=== PATIENT | female | born 1940 | race Caucasian/White ===

== ENCOUNTER 2017-04-07 16:59 | Inpatient (IN) | payer MEDICARE, MEDICAID ==
[~2017-04-07] VITALS: Ht 174 cm; Wt 75.3 kg
[~2017-04-07 16:59] MED LIST: ACET-1890 PO; AMAN100T PO; ASPI-628 PO; CHOL200047 PO; DEXT1DRO7 BOTH_EYES; DOCU100T2 PO; Dexamethasone PO; FENT1PAT7 TOP; GABA600T PO; HYPR15DR3 BOTH_EYES; INVANZ1I IV; LACT1CAP13 PO; LIDO5CRE5 TP; MENT1ADH TP; MIRT15TA PO; NITR100 PO; OXYC5TAB72 PO; POLY17PO6 PO; RANI150T13 PO; SENN-133 PO; SERT25TA2 PO; TIZA4TAB4 PO; TIZA6CAP9 PO
[2017-04-07 17:10] VITALS: BP 114/71; PULSE 84; RESP 16; O2SAT 93
--- NOTE | 2017-04-07 17:11 | ED.REPORT ---
HPI-Extremity Problem Lower Date of Service Apr 07, 2017 ED Provider: History of Present Illness: 76yo female with new onset R hip pain. 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 Pt. is a resident at [facility]. R hip pain is sharp, non-radiating. She has moderate contractures. Hx. of hemorrhagic CVA, not on any blood thinners. Nursing Notes Stated Complaint: HIP FRACTURE Chief Complaint: Extremity Trauma Nursing Notes Reviewed: Yes Allergies: Coded Allergies: Cephalexin Monohydrate (Verified Allergy, Unknown, 05/18/15) Scheduled ([Dexamethasone]) 2 MG TABLET 2 MG PO DAILYWM Amantadine (Amantadine) 100 Mg Tablet 100 MG PO DAILY Aspirin (Aspir 81) 81 Mg Tablet.dr 81 MG PO DAILY Cholecalciferol (Vitamin D3) (Vitamin D3) 2,000 Unit Capsule 2,000 UNIT PO DAILY Dextran 70/Hypromellose (Artificial Tears) 1 Each Droperette 1 DRP BOTH_EYES BID Docusate Sodium (Docusate Sodium) 100 Mg Tablet 200 MG PO BID Ertapenem Sodium (Invanz) 1,000 Mg/10 Ml Vial 1,000 MG IV DAILY Fentanyl 25 mcg/hr Patch (Fentanyl 25 mcg/hr Patch) 1 Each Patch.td72 1 PATCH TOP Q3D Gabapentin (Neurontin) 600 Mg Tablet 600 MG PO TID Lactobacillus Acidophilus (Acidophilus) 1 Each Capsule 2 TAB PO BID take until 05/27/15 Lidocaine (Lidocream) 5 Gm Cream..g. 1 APPL TP DAILY lidocaine gel 5%- apply to Right hip/right shoulder topically one time a day for chronic pain of contracture- rub on to hip and shoulder joints Menthol (Icy Hot) 1 Each Adh..patch 1 PAD TP BID Icy Hot (Menthol (Topical Agent) 5% external) apply to right shoulder twice a day Mirtazapine (Remeron) 15 Mg Tablet 15 MG PO HS Nitrofurantoin Monohyd/M-Cryst (MacroBid) 100 Mg Capsule 100 MG PO BID for UTI- take until 05/21/15 Polyethylene Glycol 3350 (Miralax) 17 Gm Powd.pack 17 GM PO DAILY Ranitidine HCl (Zantac) 150 Mg Tablet 150 MG PO DAILY Sertraline HCl (Zoloft) 25 Mg Tablet 75 MG PO DAILY Tizanidine (Tizanidine) 4 Mg Tablet 4 MG PO BID muscle spasm Tizanidine (Tizanidine) 6 Mg Capsule 6 MG PO evening muscle spasm oxyCODONE (oxyCODONE) 5 Mg Tablet 10 MG PO DAILY Scheduled PRN Acetaminophen (Tylenol) 325 Mg Tablet 650 MG PO Q4 PRN PRN For Pain Hypromellose (Natural Balance Tears) 15 Ml Drops 1 DRP BOTH_EYES Q4 PRN PRN dry eyes Sennosides (Senna) 8.6 Mg Tablet 3 TAB PO BID PRN PRN For Constipation oxyCODONE (oxyCODONE) 5 Mg Tablet 5 MG PO TID PRN PRN For Pain General Time Seen by MD: 17:10 Chief Complaint Hip injury right Hx Obtained From: Daughter Arrived By: Ambulance Onset Occurred: 1 - 4 hours ago Symptom Duration: Since onset Context: Occurred at: Home injury Location: : Hip right Quality: Sharp Severity: Current: Moderate Severity: Maximum: Moderate Pertinent Negative: Pt denies other symptoms Exacerbated by: Movement Relieved by: Rest Similar Sx Previous: No Risk-Extremity Prob Lower Well's Criteria for DVT Well's DVT Score: 0 pts (low risk 5%) Past Medical History Past Medical History Chronic pain Neurogenic bladder Reports: GERD, Hypertension, Stroke Reports: Depression Smoking History Former Smoker Social History Alcohol Use: Denies alcohol use Drug Use: Denies drug use Other Social History: Lives in [facility] Review of Systems Constitutional: Denies: Chills, Fever Musculoskeletal: Reports: Joint pain Respiratory: Denies: Shortness of breath Cardiovascular: Denies: Chest pain GI: Denies: Abdominal pain Physical Exam Initial Vital Signs Vital Signs (First) Date Time Temp Pulse Resp B/P Pulse Ox O2 Delivery O2 Flow Rate FiO2 04/07/17 17:10 37.4 84 16 114/71 93 Room Air Initial VS: Reviewed Right Hip: Positive: Deformity present, Tenderness present..., Negative: Ecchymosis present, Neuro deficit present, Pulses distal decreased , Swelling present... Right Leg / Calf: Negative: Neuro deficit present, Pulses distal decreased General/Constitutional: Awake, Alert, Not toxic appearing Appearance / Presentation: Positive: Frail L sided contractures noted Respiratory / Chest: Breath sounds NL, Breath sounds = bilat, No respiratory distress Cardiovascular: Heart rate NL, Regular rhythm, Heart sounds NL Abdomen: Soft, Non-tender Interpretation & Diagnostics Lab Results Interpretation Result Diagram: 04/07/17201104/07/172011 Test 04/07/17 20:12 White Blood Count 9.6th/mm3 (3.8-10.1) Red Blood Count 4.62mil/mm3 (3.90-5.20) Hemoglobin 10.8g/dL (12.0-15.6) Hematocrit 36.4% (35.0-46.0) Mean Corpuscular Volume 78.8fL (81-100) Mean Corpuscular Hemoglobin 23.4pg (27.0-35.0) Mean Corpuscular Hemoglobin Concent 29.7% (32.0-37.0) Red Cell Distribution Width 16.3% (12.3-15.4) Platelet Count 292bil/L (150-400) Neutrophils (%) (Auto) 89.6% (40-74) Lymphocytes (%) (Auto) 6.7% (14-46) Monocytes (%) (Auto) 2.9% (4-12) Eosinophils (%) (Auto) 0.3% (0-5) Basophils (%) (Auto) 0.2% (0-3) Prothrombin Time 9.5sec (8.1-12.5) Prothromb Time International Ratio 0.89ratio Sodium Level 140mEq/L (134-144) Potassium Level 4.3mEq/L (3.5-5.2) Chloride Level 103mEq/L (97-108) Carbon Dioxide Level 24mmol/L (18-29) Blood Urea Nitrogen 22mg/dL (8-27) Creatinine 0.64mg/dL (0.57-1.00) Estimat Glomerular Filtration Rate 130mL/min (>59) Glucose Level 153mg/dL (60-99) Calcium Level 9.0mg/dL (8.5-10.1) Total Bilirubin 0.2mg/dL (0.0-1.2) Aspartate Amino Transf (AST/SGOT) 16U/L (0-50) Alanine Aminotransferase (ALT/SGPT) 10U/L (0-32) Alkaline Phosphatase 97U/L (25-165) Total Protein 6.5g/dL (6.4-8.4) Albumin 3.2g/dL (3.4-5.0) X-Ray Interpretation Xray Interpretation: PROCEDURE: X-RAY RIGHT HIP COMPLETE, MINIMUM TWO VIEWS ([id number]) INDICATIONS: pain TECHNIQUE: 2 views of the hip were acquired. COMPARISON: None. FINDINGS: Bones: There is diffuse osteopenia. There is an impacted subcapital fracture of the right femoral neck. The visualized pelvic ring appears intact. Soft tissues: No suspicious soft tissue calcifications or masses. IMPRESSION: 1. Impacted subcapital right femoral neck fracture. Dictated by: Mason Portillo M.D. on 04/07/2017 at 18:06 Approved by: Mason Portillo M.D. on 04/07/2017 at 18:07 Re-Eval/Medical Decision Med Decision/Clinical Course Spoke with Dr. Wang, advertising sales consultant ortho and he suggested repair given injury is to non-affected side from stroke. Pt. is bed bound, but likely does some transferring and hip fracture may impede that. Spoke with Dr. Mendoza who accepted Pt. to his service. Differential Diagnosis: Positive: Fracture Diagnosis Appears: Evident Counseled Regarding: Diagnosis, Lab results, Need for follow-up, Need for admission Discharge & Departure Impression: Primary Impression: Closed right hip fracture Encounter type: initial encounter Qualified Code: S72.001A - Fracture of unspecified part of neck of right femur, initial encounter for closed fracture Additional Impression: Contracture of joint of multiple sites Disposition: ADMITTED TO HOSPITAL Referrals: Madison Schmitt MD (PCP) EDSupervising Provider for APC: Qasim Galdamez DO copies to: Madison Schmitt MD, Christopher R PAC Apr 07, 2017 17:11
--- NOTE | 2017-04-07 18:09 | DRSVH ---
PROCEDURE: X-RAY RIGHT HIP COMPLETE, MINIMUM TWO VIEWS ([id number]) INDICATIONS: pain TECHNIQUE: 2 views of the hip were acquired. COMPARISON: None. FINDINGS: Bones: There is diffuse osteopenia. There is an impacted subcapital fracture of the right femoral ne ck. The visualized pelvic ring appears intact. Soft tissues: No suspicious soft tissue calcifications or masses. IMPRESSION: 1. Impacted subcapital right femoral neck fracture. Dictated by: Mason Portillo M.D. on 04/07/2017 at 18:06 Approved by: Mason Portillo M.D. on 04/07/2017 at 18:07
[2017-04-07] MEDS ORDERED: Ondansetron 2 mg/mL 2 mL Inj IVPUSH PRN (19:40)
[2017-04-07] MEDS ORDERED: Alum-Mag Hydrox-Simeth 30 mL Suspension PO PRN (19:40)
[2017-04-07] MEDS ORDERED: Polyethylene Glycol (PEG) 17 Gm Powder PO PRN (19:40)
--- NOTE | 2017-04-07 19:47 | DRSVH ---
PROCEDURE: X-RAY CHEST ONE VIEW, PORTABLE ([id number]) INDICATIONS: pre-op TECHNIQUE: One view of the chest was acquired. COMPARISON: [facility], ASHLEY, XR HIP 2VW RT, 04/07/2017, 17:49. [facility], CR , CHEST 1VW (PORTABLE), 05/18/2015, 19:57. FINDINGS: Surgical changes and devices: None. Lungs and pleura: No pleural effusions or pneumothorax. There is mild linear scarring or atelectasi s in the left base. No acute consolidation. Mediastinum: Mediastinal contours appear normal. Heart size is normal. Bones and chest wall: No suspicious bony lesions. Overlying soft tissues appear unremarkable. IMPRESSION: 1. No acute cardiopulmonary disease. Dictated by: Mason Portillo M.D. on 04/07/2017 at 19:45 Approved by: Mason Portillo M.D. on 04/07/2017 at 19:46
[2017-04-07] MEDS: 0.9% Sodium Chloride 1,000 ML IV SCH (20:15)
[2017-04-07 20:24] LABS: BASOPHILS % (AUTO) 0.2 % (0-3); EOSINOPHILS % (AUTO) 0.3 % (0-5); MONOCYTES % (AUTO) 2.9 % (4-12); Mean Corpuscular Hemoglobin 23.4 pg (27.0-35.0); Mean Corpuscular Volume 78.8 fL (81-100); NEUTROPHILS % (AUTO) 89.6 % (40-74); Platelet Count 292 bil/L (150-400)
[2017-04-07 20:42] LABS: INR 0.89 ratio
[2017-04-07 20:59] VITALS: BP 136/84; PULSE 67; RESP 18; O2SAT 94
--- NOTE | 2017-04-07 21:16 | PCM.HPMED ---
Subjective Date of Service Apr 07, 2017 Primary Provider: Admitting Physician: oCllins Mendoza MD Primary Care Physician: Madison Schmitt MD Attending Physician: Collins Mendoza MD Chief Complaint: Right hip fracture History of Present Illness: Ms. Plascencia is a 76-year-old female with past medical history of CVA with resultant left sided paralysis and baseline confusion, hypertension and chronic pain who presented to ED from [facility] secondary to right hip pain. Per patient's daughter, also present during interview her mother reported right hip pain upon transfer from wheelchair to bed today which prompted a in-house SNF x-ray showing evidence of fracture. Upon extensive interview to snf staff there is no report of a fall either out of bed or from wheelchair, patient states she may have fallen from her wheelchair though she does have baseline confusion daughter states her story may not be reliable. Currently patient states some right hip pain to palpation, is mostly bedbound though does apparently transfer to wheelchair. She denies any headache nausea vomiting, chest pain change in GI or symptoms. States some mild right hip pain which increases with palpation. She is not on any blood thinners. Right hip x-ray shows impacted subcapital right femoral neck fracture, Dr. Wang , orthopedics consult from ED, Ortho will see patient in the morning. Patient' s daughter concerned about surgery versus nonsurgical intervention for hip fracture given mother's current limitations on movement and risks of surgery. She wishes to be present at time of interview from orthopedic surgeon to discuss options. Review of Systems: A comprehensive review of systems was conducted with the patient and found to be negative except as above in the history of present illness. Allergies Coded Allergies: Cephalexin Monohydrate (Verified Allergy, Unknown, 04/07/17) Home Medications ([Dexamethasone]) 2 MG TABLET 2 MG PO DAILYWM Amantadine (Amantadine) 100 Mg Tablet 100 MG PO DAILY Aspirin (Aspir 81) 81 Mg Tablet.dr 81 MG PO DAILY Cholecalciferol (Vitamin D3) (Vitamin D3) 2,000 Unit Capsule 2,000 UNIT PO DAILY Dextran 70/Hypromellose (Artificial Tears) 1 Each Droperette 1 DRP BOTH_EYES BID Docusate Sodium (Docusate Sodium) 100 Mg Tablet 200 MG PO BID Ertapenem Sodium (Invanz) 1,000 Mg/10 Ml Vial 1,000 MG IV DAILY Fentanyl 25 mcg/hr Patch (Fentanyl 25 mcg/hr Patch) 1 Each Patch.td72 1 PATCH TOP Q3D Gabapentin (Neurontin) 600 Mg Tablet 600 MG PO TID Lactobacillus Acidophilus (Acidophilus) 1 Each Capsule 2 TAB PO BID take until 05/27/15 Lidocaine (Lidocream) 5 Gm Cream..g. 1 APPL TP DAILY lidocaine gel 5%- apply to Right hip/right shoulder topically one time a day for chronic pain of contracture- rub on to hip and shoulder joints Menthol (Icy Hot) 1 Each Adh..patch 1 PAD TP BID Icy Hot (Menthol (Topical Agent) 5% external) apply to right shoulder twice a day Mirtazapine (Remeron) 15 Mg Tablet 15 MG PO HS Nitrofurantoin Monohyd/M-Cryst (MacroBid) 100 Mg Capsule 100 MG PO BID for UTI- take until 05/21/15 Polyethylene Glycol 3350 (Miralax) 17 Gm Powd.pack 17 GM PO DAILY Ranitidine HCl (Zantac) 150 Mg Tablet 150 MG PO DAILY Sertraline HCl (Zoloft) 25 Mg Tablet 75 MG PO DAILY Tizanidine (Tizanidine) 4 Mg Tablet 4 MG PO BID muscle spasm Tizanidine (Tizanidine) 6 Mg Capsule 6 MG PO evening muscle spasm oxyCODONE (oxyCODONE) 5 Mg Tablet 10 MG PO DAILY Scheduled PRN Acetaminophen (Tylenol) 325 Mg Tablet 650 MG PO Q4 PRN PRN For Pain Hypromellose (Natural Balance Tears) 15 Ml Drops 1 DRP BOTH_EYES Q4 PRN PRN dry eyes Sennosides (Senna) 8.6 Mg Tablet 3 TAB PO BID PRN PRN For Constipation oxyCODONE (oxyCODONE) 5 Mg Tablet 5 MG PO TID PRN PRN For Pain Per outpatient records: Lorazepam 0.5 mg every 2 when necessary for anxiety and SOB Olanzapine 2.5 mg 1 tablet every evening for 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 Acetaminophen 325 mg tablets 2 tablets by mouth every 4 when necessary Aspirin 81 mg daily Atropine 1% eyedrops, 2 drops SL route every 2 hours when necessary for excessive secretions Dexamethasone 2 mg tablets, 1 tablet by mouth daily Icy hot 30% to 10% topical cream twice a day to legs for neuropathic pain Lactulose 10 g/15 mL (15 mL) oral solution, take 30 mL by oral route 2 times every day for constipation Loratadine 10 mg tablets, take 1 tablet by oral route every day for itching Natural balance 0.4% eye drops, instill 1 drop in both eyes twice a day for dryness Omeprazole 20 mg capsule, delayed release, take 1 capsule by mouth daily before meal Sennosides 8.6 mg tablets, take 4 tablets by oral route 2 times every day for constipation Baclofen 20 mg tablets, take 1 tablet by oral route 4 times every day Zoloft 50 mg tablets, 1.5 tablets daily, 75 mg daily Oxycodone 5 mg tablet, take 1 tablet by mouth every hour as needed for pain Methadone 10 mg/5 mL oral solution, take 7.5 mL (50 mg) by oral route every morning and 9.5 mL (19 mg) by mouth every evening PMH Chronic pain Neurogenic bladder Reports: GERD, Hypertension, Stroke Reports: Depression Surgical History Per outpatient records: Malignant melanoma, removal 1986 Family History Father: diabetes mellitus Social History Hx Alcohol Use: No Hx Substance Use: No Smoking Status: Former Smoker Exam Vital Signs Vital Sign - Last Date Time Temp Pulse Resp B/P Pulse Ox O2 Delivery O2 Flow Rate FiO2 04/07/17 20:59 36.6 67 18 136/84 94 Room Air Exam General: Lying in hospital bed in no acute distress, well-developed, well- nourished. Mildly confused. HEENT: Normocephalic, atraumatic. External ears without defect. Neck: Supple with full range of motion. No jugular venous distension. Cardiovascular: Regular rate and rhythm with no murmurs, rubs, or gallops appreciated Pulmonary: Clear to auscultation bilaterally with no crackles, wheezes, or rhonchi. Normal respiratory effort with no use of accessory muscles. Abdomen: Bowel tones present. Soft, nontender, nondistended. Extremities: Right hip, tenderness to palpation. No ecchymosis appreciated. No neuro deficit distal to injury. Good movement and pulses distal to injury. Left upper/lower extremities contracted with motor deficit. Skin: Normal temperature, turgor, and texture Psychiatric: Confused affect, relies on daughter to answer many questions, per daughter this is her baseline Lab and Diagnostics Result Diagram: 04/07/17201104/07/172011 X-Rays, CTs and MRIs . X-RAY CHEST ONE VIEW, PORTABLE IMPRESSION: 1. No acute cardiopulmonary disease. Dictated by: Mason Portillo M.D. on 04/07/2017 at 19:45 X-RAY RIGHT HIP COMPLETE, MINIMUM TWO VIEWS IMPRESSION: 1. Impacted subcapital right femoral neck fracture. Dictated by: Mason Portillo M.D. on 04/07/2017 at 18:06 Assessment & Plan Ms. Plascencia is a 76-year-old female with past medical history of CVA with resultant left sided paralysis and baseline confusion, hypertension and chronic pain, admitted for right hip fracture. Right hip fracture. Acute. Present on admission. Ongoing - Orthopedic consult - Restart patient's home pain medications, pain well-controlled - Continue home Methadone - Continue home Oxycodone - Nothing by mouth after midnight History of CVA. Chronic. Present on admission. Ongoing - With resultant left sided paralysis and baseline confusion - Continue home baclofen Depression. Chronic. Present on admission - Continue home sertraline - Continue home olanzapine History of hypertension. Chronic. Present admission - No home medication listed for HTN - Hemodynamically stable - Continue to monitor Prescription narcotic dependence. Chronic. Present on admission. Ongoing - Secondary to chronic pain - Pain medications as above GERD. Chronic. Present on admission - Continue home omeprazole Patient Status: Patient was admitted under inpatient status with expected length of stay greater than two midnights due to severity of presenting symptoms , risk of adverse event, and complexity of treatment plan. CODE STATUS discussed with patient and patient's daughter present in the room. Patient previously DNR/DNI while on hospice care though has graduated from hospice care and at this point wishes to be full code. Pain Evaluation: Adequate Pain Control GI Prophylaxis: Proton Pump Inhibitor VTE Prophylaxis: SCDs Resuscitation Status: CPR: Attempt Resuscitation Attending Statement The patient was seen and examined together with Dr. Vazquez on 04/07 and I agree with the history, exam and plan as outlined in the note above. GERMÁN VAZQUEZ DO Apr 07, 2017 21:16 Collins Mendoza MD Apr 07, 2017 23:30
[2017-04-07] MEDS ORDERED: OMEP20CA11 PO (21:31)
[2017-04-07] MEDS ORDERED: DEX5 PO (21:31)
[2017-04-07] MEDS ORDERED: MENT56CR TOP (21:31)
[2017-04-07] MEDS ORDERED: LACT10SO PO (21:31)
[2017-04-07] MEDS ORDERED: OLAN2.5T20 PO (21:31)
[2017-04-07] MEDS ORDERED: METH10SO PO ×2 (21:31)
[2017-04-07] MEDS ORDERED: SERT50TA9 PO (21:31)
[2017-04-07] MEDS ORDERED: BACL20TA PO (21:31)
[2017-04-07] MEDS ORDERED: LORA10CA PO (21:31)
[2017-04-07] MEDS ORDERED: MINE3.5O28 BOTH_EYES (21:31)
[2017-04-07] MEDS ORDERED: ASPI-973 PO (21:32)
[2017-04-07] MEDS ORDERED: ACET325C PO (21:32)
[2017-04-08 00:43] VITALS: BP 130/73; PULSE 68; RESP 20; O2SAT 94
[2017-04-08] MEDS: 0.9% Sodium Chloride 1,000 ML IV SCH ×3 (02:31→22:30)
[2017-04-08] MEDS: HYDROmorphone 1 mg/mL Inj IVPUSH PRN ×3 (02:32→13:57)
[2017-04-08 04:44] VITALS: BP 144/79; PULSE 65; RESP 18; O2SAT 96
--- NOTE | 2017-04-08 06:05 | NUR ---
Arrival to [facility] Room 1017 at 2054. Daughter accompanies pt and assists with admit information. Transferred to bed with slide board. Pt is in pain, moving her R leg and bending knee despite education on hip care. Skin inspected, no bruises or abrasions noted to Rt hip. Left lower leg edematous, socks and foam pad removed and heels floated. Pt is hungry and requesting dinner prior to NPO at midnight, given frozen chicken dinner with 1:1 assistance and she consumed 100%. Pt Alert but confused, NPO after midnight strictly enforced. Put on bedpan 2x this shift but pt is incontinent of urine- no UA sent yet. Care continues
--- NOTE | 2017-04-08 07:04 | PCM.HPANE ---
Patient Data Surgeon Admitting Provider:Collins Mendoza MD Attending Provider:Collins Mendoza MD Primary Care Physician:Madison Schmitt MD Other Provider: Reason for Visit Right Hip Fracture Ht/WT & BMI Height (Feet): 5 Height (Inches): 8.50 Weight (Kilograms): 75.300 Body Mass Index 24.87 Allergies Coded Allergies: Cephalexin Monohydrate (Verified Allergy, Unknown, 04/07/17) Past Anesthesia History Anesthesia History: Denies:: Anesthesia Reactions Diabetes History Hx Diabetes?: No MRSA MRSA: No Medications Reported Medications Aspirin 81 Mg Ivnvho54 Mg PO DAILY Ref 0 04/07/17 Acetaminophen 325 Mg Hwhzged691 Mg PO q4 hours PRN For Pain 04/07/17 Baclofen 20 Mg Xymbtl03 Mg PO q8 hours #90 04/07/17 Menthol/Camphor (Icy Hot Advanced Relief Cream)16 %-11 % Cream..g.1 Applic TOP BID 04/07/17 Sertraline HCl (Sertraline)50 Mg Lforlq44 Mg PO DAILY #45 04/07/17 Omeprazole 20 Mg Capsule.dr20 Mg PO DAILY #30 04/07/17 Olanzapine 2.5 Mg Tablet2.5 Mg PO HS #30 04/07/17 Methadone 10 Mg/5 Ml Solution9.5 Ml PO QPM 04/07/17 Methadone 10 Mg/5 Ml Solution7.5 Ml PO DAILY #240 04/07/17 Loratadine (Claritin)10 Mg Sautzbk88 Mg PO DAILY Ref 0 04/07/17 Lactulose 10 Gm/15 Ml Nbjvkfbo67 Ml PO DAILY #473 04/07/17 Dexamethasone 0.5 Mg Tab0.5 Mg PO DAILY #30 04/07/17 Mineral Oil/Petrolatum,White (Artificial Tears Eye Oint)3.5 Gm Tube1 Applic BOTH _EYES HS 04/07/17 Sennosides (Senna)8.6 Mg Glfndk50.4 Mg PO BID 05/19/15 oxyCODONE 5 Mg Tablet5-10 Mg PO q4 hours PRN For Pain Ref 0 05/19/15 Discontinued Reported Medications Sertraline HCl (Zoloft)25 Mg Suedwe80 Mg PO DAILY Ref 0 05/19/15 Cholecalciferol (Vitamin D3) (Vitamin D3)2,000 Unit Capsule2,000 Unit PO DAILY 05/19/15 Acetaminophen (Tylenol)325 Mg Tyiabu863 Mg PO Q4 PRN For Pain 05/19/15 Tizanidine 6 Mg Capsule6 Mg PO evening muscle spasm 05/19/15 Tizanidine 4 Mg Tablet4 Mg PO BID muscle spasm 05/19/15 Mirtazapine (Remeron)15 Mg Nekevz95 Mg PO HS Ref 0 05/19/15 Ranitidine HCl (Zantac)150 Mg Kveujo535 Mg PO DAILY Ref 0 05/19/15 oxyCODONE 5 Mg Paugfd86 Mg PO DAILY For Pain Ref 0 05/19/15 Gabapentin (Neurontin)600 Mg Zmcfgo703 Mg PO TID Ref 0 05/19/15 Hypromellose (Natural Balance Tears)15 Ml Drops1 Drp BOTH_EYES Q4 PRN dry eyes 05/19/15 Polyethylene Glycol 3350 (Miralax)17 Gm Powd.pack17 Gm PO DAILY 05/19/15 Nitrofurantoin Monohyd/M-Cryst (MacroBid)100 Mg Ljvqjfm210 Mg PO BID Ref 0 for UTI- take until 05/21/15 05/19/15 Lidocaine (Lidocream)5 Gm Cream..g.1 Appl TP DAILY lidocaine gel 5%- apply to Right hip/right shoulder topically one time a day for chronic pain of contracture- rub on to hip and shoulder joints 05/19/15 Menthol (Icy Hot)1 Each Adh..patch1 Pad TP BID Icy Hot (Menthol (Topical Agent) 5% external) apply to right shoulder twice a day 05/19/15 Fentanyl 25 mcg/hr Patch 1 Each Patch.td721 Patch TOP Q3D 05/19/15 Docusate Sodium 100 Mg Yltund843 Mg PO BID For Constipation Ref 0 05/19/15 Aspirin (Aspir 81)81 Mg Tablet.dr81 Mg PO DAILY Ref 0 05/19/15 Dextran 70/Hypromellose (Artificial Tears)1 Each Droperette1 Drp BOTH_EYES BID 05/19/15 Amantadine 100 Mg Lcmkca483 Mg PO DAILY 05/19/15 Lactobacillus Acidophilus (Acidophilus)1 Each Capsule2 Tab PO BID take until 05/27/15 05/19/15 Discontinued Scripts [Dexamethasone] (Decadron)2 MG TABLET No Conflict Check2 Mg PO DAILYWM #30 TABLET Prov:Gini Tamez DO 05/21/15 Ertapenem Sodium (Invanz)1,000 Mg/10 Ml Vial1,000 Mg IV DAILY 3 Days Prov:Gini Tamez DO 05/21/15 History History of ENT Problems?: No HEENT History: Positive for:: Dysphagia (Oropharyngeal phase) Denies:: Cataracts Sinus Problem Hx of Heart Problems?: Yes Cardiovascular History: Positive for:: Heart Murmur Hypertension Irregular Heartbeat Denies:: Cardiac Surgery Chest Pain Congestive Heart Failure Edema Pacemaker Thrombophlebitis Hx of Respiratory Problem?: Yes Respiratory History: Positive for:: Dyspnea (current, 1-2L nc as needed) Denies:: Asthma COPD Chest Surgery Emphysema Hemoptysis Pneumonia Tuberculosis (tests positive, but not active) Hx Neurologic Problems?: Yes Neurological History: Positive for:: CVA (hemorrhagic 2012) Dementia (confused at baseline) Headaches Denies:: Alzheimer's Disease Dizziness Parkinson's Disease Seizures Hx of GI Problems?: No Hx of Problems?: Yes Genitourinary History: Positive for:: Urinary Tract Infection (Several in recent years) Denies:: HX of Hemodialysis Kidney Stones Other Pertinent History: Neurogenic bladder Female Hx: Denies:: Currently Endometriosis Pelvic Inflammatory Problems with Breasts? Hx Musculoskeletal Problems?: Yes Musculoskeletal History: Positive for:: Back Injury (chronic back, leg, hip and L side pain from CVA) Denies:: Joint Replacement Musculoskeletal Trauma Hx of Psycho/Social Problems?: Yes Psycho Social History: Positive for:: Anxiety Hx Depression Denies:: Bipolar Disorder Suicide Attempt Hx Surgeries?: Yes (melanoma removal) Hx Any Other Health Problems?: Yes Other History: Positive for:: Cancer (melanoma) Hospitalization Denies:: Thyroid Disease History Blood Transfusions: Positive for:: Accept Blood Products? Denies:: Blood Transfuse Reaction Blood Transfusions Hx Diabetes: No Hx Alcohol Use: NoHx Substance Use: No Smoking Status: Former Smoker Have You Smoked inLast 12 mo: No Stop/Bang Treated for Sleep Apnea?: No Do You Have a CPAP Machine?: No S-Snoring: Do You Snore Loudly: No T-Tired: feel tired, fatigued: No O-Obsered: Observed not breath: No P-Blood Pressure: treated: No B- Body Mass Index > 35 kg/m2: No A- Age over 50: Yes N- Neck Large Circumference: No G- Gender Male: No DANIEL Total Score: 0 Risk Assessment Category Category 1A: Patient has history of documented sleep apnea, and HAS NOT received any narcotic, sedative or anesthesia administration during this stay. Category 1B: Patient has history of documented sleep apnea, and HAS received any narcotic , sedative or anesthesia administration during this stay Category 2: Patient has SUSPECTED Obstructive Sleep Apnea, and HAS received any narcotic , sedative or anesthesia administration during this stay. Category 3: Patient has SUSPECTED Obstructive Sleep Apnea and HAS NOT received narcotic, sedative or anesthesia administration during this stay. Category 4: Outpatient in Procedural Areas with known sleep apnea or who screen positive for High Risk via the STOP/BANG questionnaire. Exam Exam Vital Signs Vital Signs Date Time Temp Pulse Resp B/P Pulse Ox O2 Delivery O2 Flow Rate FiO2 04/08/17 04:44 36.7 65 18 144/79 96 Room Air 04/08/17 04:34 Supplement Oxygen 04/08/17 00:43 36.4 68 20 130/73 94 Room Air Meds/Labs/Diagnostics Admission Meds Current Medications Sodium Chloride (Normal Saline) 1,000 ml @ 100 mls/hr Q10H IV Last administered on 04/08/17 02:31; Start 04/07/17 at 19:20 Olanzapine (ZyPREXA) 2.5 mg HS PO Last administered on 04/07/17 23:14; Start at 22:25 Baclofen (Lioresal) 20 mg Q8 PO Last administered on 04/07/17 23:12; Start 04/07 at 22:27 Methadone HCl (Dolophine) 20 mg DAILY@2030 PO Last administered on 04/07/17 23: 12; Start 04/07/17 at 22:24 Labs Test 04/07/17 20:12 White Blood Count 9.6th/mm3 (3.8-10.1) Red Blood Count 4.62mil/mm3 (3.90-5.20) Hemoglobin 10.8g/dL (12.0-15.6) Hematocrit 36.4% (35.0-46.0) Mean Corpuscular Volume 78.8fL (81-100) Mean Corpuscular Hemoglobin 23.4pg (27.0-35.0) Mean Corpuscular Hemoglobin Concent 29.7% (32.0-37.0) Red Cell Distribution Width 16.3% (12.3-15.4) Platelet Count 292bil/L (150-400) Neutrophils (%) (Auto) 89.6% (40-74) Lymphocytes (%) (Auto) 6.7% (14-46) Monocytes (%) (Auto) 2.9% (4-12) Eosinophils (%) (Auto) 0.3% (0-5) Basophils (%) (Auto) 0.2% (0-3) Prothrombin Time 9.5sec (8.1-12.5) Prothromb Time International Ratio 0.89ratio Sodium Level 140mEq/L (134-144) Potassium Level 4.3mEq/L (3.5-5.2) Chloride Level 103mEq/L (97-108) Carbon Dioxide Level 24mmol/L (18-29) Blood Urea Nitrogen 22mg/dL (8-27) Creatinine 0.64mg/dL (0.57-1.00) Estimat Glomerular Filtration Rate 130mL/min (>59) Glucose Level 153mg/dL (60-99) Calcium Level 9.0mg/dL (8.5-10.1) Total Bilirubin 0.2mg/dL (0.0-1.2) Aspartate Amino Transf (AST/SGOT) 16U/L (0-50) Alanine Aminotransferase (ALT/SGPT) 10U/L (0-32) Alkaline Phosphatase 97U/L (25-165) Total Protein 6.5g/dL (6.4-8.4) Albumin 3.2g/dL (3.4-5.0) Plan Impression Patient chart reviewed, patient interviewed and anesthestic plan with risks, benefits, and alternatives discussed, and informed consent obtained. Albino Almanzar MD Apr 08, 2017 07:04
[2017-04-08] MEDS: Pantoprazole 20 mg ER24 Tablet PO SCH (08:13)
[2017-04-08 09:17] VITALS: BP 140/67; PULSE 69; RESP 16; O2SAT 91
--- NOTE | 2017-04-08 09:53 | CONS ---
[address] [address] CONSULTATION REPORT PATIENT: ANSELMO DELACRUZ : 1940 MR#: [id number] ADMIT: 04/07/2017 JOB ID: [id number] DATE OF SERVICE: 04/08/2017 CHIEF COMPLAINT: Right hip pain. HISTORY OF PRESENT ILLNESS: The patient is a 76-year-old female with a history of a cerebrovascular accident and left-sided hemiparesis, who began complaining of right hip pain yesterday. She is at a care facility and does not ambulate at all. Uses a wireless lift for transfers. The staff noted no falls or other evidence of trauma. In any event, she was brought in and found to have right hip pain. She was brought into the emergency department and admitted to the hospital. She has some baseline confusion as well and chronic pain from her contractures of her left side. PAST MEDICAL HISTORY: Significant for cerebrovascular accident with left-sided hemiparesis, hypertension, confusion, chronic pain, gastroesophageal reflux disease, depression. PAST SURGICAL HISTORY: Malignant melanoma removal. SOCIAL HISTORY: The patient resides at a care home facility. She is seen with her daughter. PHYSICAL EXAMINATION: On exam, blood pressure 140/67, pulse rate 69, respirations 16, temperature 36.4. She is alert, in no acute distress. She has good use of her right upper extremity. Her right hip has some pain with range of motion. Her skin overlying the hip is intact. Her foot is warm, pink, and well perfused. Her left hip on the left side has contractures and is also painful for the patient with attempted movements. IMAGING PROCEDURE: X-rays demonstrate a right femoral neck fracture with impaction and some displacement and angulation. ASSESSMENT: Right hip femoral neck fracture. PLAN: I discussed treatment options with the patient and her daughter, including operative and nonoperative management, and they would like to proceed with nonoperative management which is what I recommend as the patient is nonambulatory and is not in too much discomfort at this point. I would like her to remain nonweightbearing, of course, and follow up with x-rays in two weeks, and then again in six weeks, which could potentially be done with a portable x-ray, and images sent to my clinic. We discussed that should this become more painful or bothersome, we could potentially do a surgical procedure in the future. I am initiating fracture care for this right femoral neck fracture.
--- NOTE | 2017-04-08 12:10 | PCM.PNMED ---
Subjective Date of Service Apr 08, 2017 Subjective pain fairly controlled. patient with some cognitive impairment at baseline Exam Vital Signs Vital Sign - Last Date Time Temp Pulse Resp B/P Pulse Ox O2 Delivery O2 Flow Rate FiO2 04/08/17 09:17 36.4 69 16 140/67 91 Room Air Intake and Output 04/07/17 04/07/17 04/08/17 Cumulative From/Thru 15:00 23:00 07:00 04/07/17 17:10 - 04/08/17 05:37 Intake Total 999 ml 200 ml 1199 ml Balance 999 ml 200 ml 1199 ml Intake Oral 200 ml 200 ml IV Total 999 ml 999 ml # Voids 3 3 # Bowel Movements 0 0 Exam General: Lying in hospital bed in no acute distress, well-developed, well- nourished. Mildly confused. HEENT: Normocephalic, atraumatic. External ears without defect. Neck: Supple with full range of motion. No jugular venous distension. Cardiovascular: Regular rate and rhythm with no murmurs, rubs, or gallops appreciated Pulmonary: Clear to auscultation bilaterally with no crackles, wheezes, or rhonchi. Normal respiratory effort with no use of accessory muscles. Abdomen: Bowel tones present. Soft, nontender, nondistended. Extremities: Right hip, tenderness to palpation. No ecchymosis appreciated. No neuro deficit distal to injury. Good movement and pulses distal to injury. Left upper/lower extremities contracted with motor deficit. Skin: Normal temperature, turgor, and texture Psychiatric: Confused affect, relies on daughter to answer many questions, per daughter this is her baseline right hip tenderness on passive movement IVs and Medications Medications Reviewed: Medications were reviewed in detail Lab and Diagnostics Result Diagram: 04/07/17201104/07/172011 X-Rays, CTs and MRIs . X-RAY CHEST ONE VIEW, PORTABLE IMPRESSION: 1. No acute cardiopulmonary disease. Dictated by: Mason Portillo M.D. on 04/07/2017 at 19:45 X-RAY RIGHT HIP COMPLETE, MINIMUM TWO VIEWS IMPRESSION: 1. Impacted subcapital right femoral neck fracture. Dictated by: Mason Portillo M.D. on 04/07/2017 at 18:06 Assessment & Plan Ms. Plascencia is a 76-year-old female with past medical history of CVA with resultant left sided paralysis and baseline confusion, hypertension and chronic pain, admitted for right hip fracture. # Right hip fracture. Acute. Present on admission. Ongoing - Orthopedic consulted and recommended nonoperative management - Restart patient's home pain medications, pain well-controlled - Continue home Methadone - Continue home Oxycodone - DVT ppx lovenox for now -unknown how she got the fracture.no trauma or fall reported by [facility] staff.UA requested # History of CVAwith residual left sided hemiparesis Chronic. Present on admission. Ongoing - With resultant left sided paralysis and baseline confusion - Continue home baclofen -patient bed and wheel chair bound at baseline and longterm resident of [facility] for the last 4 and half years since her stroke . # Depression. Chronic. Present on admission - Continue home sertraline - Continue home olanzapine # History of hypertension. Chronic. Present admission - No home medication listed for HTN - Hemodynamically stable - Continue to monitor # Prescription narcotic dependence. Chronic. Present on admission. Ongoing - Secondary to chronic pain - Pain medications as above # GERD. Chronic. Present on admission - Continue home omeprazole Patient Status: Patient was admitted under inpatient status with expected length of stay greater than two midnights due to severity of presenting symptoms , risk of adverse event, and complexity of treatment plan. CODE STATUS discussed with patient and patient's daughter present in the room. Patient previously DNR/DNI while on hospice care though has graduated from hospice care and at this point wishes to be full code. disposition:back to [facility] tomorrow after pain control GI Prophylaxis: Proton Pump Inhibitor VTE Prophylaxis: SCDs Resuscitation Status: CPR: Attempt Resuscitation Jayson Herndon MD Apr 08, 2017 12:10
--- NOTE | 2017-04-08 15:43 | NUR ---
Received phone call from Bibi Montanez athletic coordinator at [facility] and patient comes from there and is welcome to return when ready. Updated [employer]
[2017-04-08 17:22] VITALS: BP 157/79; PULSE 68; RESP 18; O2SAT 93
[2017-04-08 19:25] VITALS: BP 159/80; PULSE 66; RESP 16; O2SAT 93
[2017-04-08] MEDS ORDERED: LacriLube S.O.P. 3.5 Gm Ophthalmic Ointment BOTH_EYES SCH (21:00)
[2017-04-09 04:16] VITALS: BP 158/91; PULSE 61; RESP 18; O2SAT 97
--- NOTE | 2017-04-09 05:32 | NUR ---
Pain Pt c/o RT hip pain 02/10. Repositioned for comfort and given Oxycodone 10mg. Will continue to monitor. Care ongoing. Call light within reach.
[2017-04-09] MEDS ORDERED: Lactulose 20 Gm/30 mL 30 mL Syrup PO ONE (08:10)
[2017-04-09] MEDS: Pantoprazole 20 mg ER24 Tablet PO SCH (08:30)
--- NOTE | 2017-04-09 10:14 | PCM.DIMED ---
Discharge Instructions Date of Service Apr 09, 2017 Dates of Hospitalization Apr 07, 2017 at 20:17 Discharge Diagnosis Discharge Diagnosis # Right hip fracture. Acute. Present on admission. 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 Present on admission. Ongoing # Depression. Chronic. Present on admission # History of hypertension. Chronic. Present admission # Prescription narcotic dependence. Chronic. Present on admission. Ongoing # GERD. Chronic. Present on admission - Diet Discharge Diet: Low fat, Low Sodium, Heart Healthy Activity Discharge Activity: Limited until seen by PCP Call your provider Call your provider for: Fever or Chills, Shortness of breath, Bleeding, Chest pain, Vomitting, Excessive diarrhea, Weakness (unilateral) Patient Instructions Patient Instructions You were hospitalized due to right hip fracture. Orthopedics consulted and recommended nonoperative management. Continue pain medications for pain control. Continue physical therapy with nonweightbearing on the right hip. Please follow-up with orthopedics in 2 weeks. He plans to reconsider operative management if pain is uncontrolled. Follow-up Provider: Madison Schmitt MD Follow-up with PCP in: 1 week Provider: Julio Wang DO Follow-up in: 2 weeks Jayson Herndon MD Apr 09, 2017 10:14
[2017-04-09] MEDS ORDERED: OXYC1TAB24 PO (10:16)
--- NOTE | 2017-04-09 10:20 | PCM.DC.MED ---
Discharge Summary Date of Service Apr 09, 2017 Dates of Hospitalization Date of Hospital Admission Apr 07, 2017 at 20:17 Date of Discharge: Apr 09, 2017 Providers: Admitting Physician: Collins Mendoza MD Primary Care Physician: Madison Schmitt MD Attending Physician: Collins Mendoza MD Diagnosis at Time of Discharge Diagnosis at Time of Discharge # Right hip fracture. Acute. Present on admission. 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 Present on admission. Ongoing # Depression. Chronic. Present on admission # History of hypertension. Chronic. Present admission # Prescription narcotic dependence. Chronic. Present on admission. Ongoing # GERD. Chronic. Present on admission - Consultations Orthopedics to Procedures XRay, CTs & MRIs . X-RAY CHEST ONE VIEW, PORTABLE IMPRESSION: 1. No acute cardiopulmonary disease. Dictated by: Mason Portillo M.D. on 04/07/2017 at 19:45 X-RAY RIGHT HIP COMPLETE, MINIMUM TWO VIEWS IMPRESSION: 1. Impacted subcapital right femoral neck fracture. Dictated by: Mason Portillo M.D. on 04/07/2017 at 18:06 Brief History per [facility] Ms. Plascencia is a 76-year-old female with past medical history of CVA with resultant left sided paralysis and baseline confusion, hypertension and chronic pain who presented to ED from [facility] secondary to right hip pain. Per patient's daughter, also present during interview her mother reported right hip pain upon transfer from wheelchair to bed today which prompted a in-house SNF x-ray showing evidence of fracture. Upon extensive interview to [facility]pc staff there is no report of a fall either out of bed or from wheelchair, patient states she may have fallen from her wheelchair though she does have baseline confusion daughter states her story may not be reliable. Currently patient states some right hip pain to palpation, is mostly bedbound though does apparently transfer to wheelchair. She denies any headache nausea vomiting, chest pain change in GI or symptoms. States some mild right hip pain which increases with palpation. She is not on any blood thinners. Right hip x-ray shows impacted subcapital right femoral neck fracture, Dr. Wang , orthopedics consult from ED, Ortho will see patient in the morning. Patient' s daughter concerned about surgery versus nonsurgical intervention for hip fracture given mother's current limitations on movement and risks of surgery. She wishes to be present at time of interview from orthopedic surgeon to discuss options. Hospital Course Ms. Plascencia is a 76-year-old female with past medical history of CVA with resultant left sided paralysis and baseline confusion, hypertension and chronic pain, admitted for right hip fracture. # Right hip fracture. Acute. Present on admission. Ongoing - Orthopedic consulted and recommended nonoperative management . Follow-up with in 2 weeks with repeat x-ray. He plans to reconsider operative management if pain is uncontrolled. - Restart patient's home pain medications, pain well-controlled - Continue home Methadone - Continue home Oxycodone -added Percocet as needed for pain - DVT ppx lovenox inpatient. Patient immobile at baseline. 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 Present on admission. Ongoing - With resultant left sided paralysis and baseline confusion - Continue home baclofen -patient bed and wheel chair bound at baseline and retirement resident of [facility] for the last 4 and half years since her stroke . # Depression. Chronic. Present on admission - Continue home sertraline - Continue home olanzapine # History of hypertension. Chronic. Present admission - No home medication listed for HTN - Hemodynamically stable - Continue to monitor # Prescription narcotic dependence. Chronic. Present on admission. Ongoing - Secondary to chronic pain - Pain medications as above # GERD. Chronic. Present on admission - Continue home omeprazole disposition:back to [facility] Exam Vital Signs (Last) Date Time Temp Pulse Resp B/P Pulse Ox O2 Delivery O2 Flow Rate FiO2 04/09/17 04:16 36.2 61 18 158/91 97 Room Air Exam General: Lying in hospital bed in no acute distress, well-developed, well- nourished. Mildly confused. HEENT: Normocephalic, atraumatic. External ears without defect. Neck: Supple with full range of motion. No jugular venous distension. Cardiovascular: Regular rate and rhythm with no murmurs, rubs, or gallops appreciated Pulmonary: Clear to auscultation bilaterally with no crackles, wheezes, or rhonchi. Normal respiratory effort with no use of accessory muscles. Abdomen: Bowel tones present. Soft, nontender, nondistended. Extremities: Right hip, tenderness to palpation. No ecchymosis appreciated. No neuro deficit distal to injury. Good movement and pulses distal to injury. Left upper/lower extremities contracted with motor deficit. Skin: Normal temperature, turgor, and texture Psychiatric: Confused affect, relies on daughter to answer many questions, per daughter this is her baseline right hip tenderness on passive movement Test 04/07/17 20:12 White Blood Count 9.6th/mm3 (3.8-10.1) Red Blood Count 4.62mil/mm3 (3.90-5.20) Hemoglobin 10.8g/dL (12.0-15.6) Hematocrit 36.4% (35.0-46.0) Mean Corpuscular Volume 78.8fL (81-100) Mean Corpuscular Hemoglobin 23.4pg (27.0-35.0) Mean Corpuscular Hemoglobin Concent 29.7% (32.0-37.0) Red Cell Distribution Width 16.3% (12.3-15.4) Platelet Count 292bil/L (150-400) Neutrophils (%) (Auto) 89.6% (40-74) Lymphocytes (%) (Auto) 6.7% (14-46) Monocytes (%) (Auto) 2.9% (4-12) Eosinophils (%) (Auto) 0.3% (0-5) Basophils (%) (Auto) 0.2% (0-3) Prothrombin Time 9.5sec (8.1-12.5) Prothromb Time International Ratio 0.89ratio Sodium Level 140mEq/L (134-144) Potassium Level 4.3mEq/L (3.5-5.2) Chloride Level 103mEq/L (97-108) Carbon Dioxide Level 24mmol/L (18-29) Blood Urea Nitrogen 22mg/dL (8-27) Creatinine 0.64mg/dL (0.57-1.00) Estimat Glomerular Filtration Rate 130mL/min (>59) Glucose Level 153mg/dL (60-99) Calcium Level 9.0mg/dL (8.5-10.1) Total Bilirubin 0.2mg/dL (0.0-1.2) Aspartate Amino Transf (AST/SGOT) 16U/L (0-50) Alanine Aminotransferase (ALT/SGPT) 10U/L (0-32) Alkaline Phosphatase 97U/L (25-165) Total Protein 6.5g/dL (6.4-8.4) Albumin 3.2g/dL (3.4-5.0) Discharge Medications Discharge Medications Aspirin (Aspirin) 81 Mg Tablet 81 MG PO DAILY (Reported) Baclofen (Baclofen) 20 Mg Tablet 20 MG PO q8 hours (Reported) Dexamethasone (Dexamethasone) 0.5 Mg Tab 0.5 MG PO DAILY (Reported) Lactulose (Lactulose) 10 Gm/15 Ml Solution 15 ML PO DAILY (Reported) Loratadine (Claritin) 10 Mg Capsule 10 MG PO DAILY (Reported) Menthol/Camphor (Icy Hot Advanced Relief Cream) 16 %-11 % Cream..g. 1 APPLIC TOP BID (Reported) Methadone (Methadone) 10 Mg/5 Ml Solution 7.5 ML PO DAILY (Reported) Methadone (Methadone) 10 Mg/5 Ml Solution 9.5 ML PO QPM (Reported) Mineral Oil/Petrolatum,White (Artificial Tears Eye Oint) 3.5 Gm Tube 1 APPLIC BOTH_EYES HS (Reported) Olanzapine (Olanzapine) 2.5 Mg Tablet 2.5 MG PO HS (Reported) Omeprazole (Omeprazole) 20 Mg Capsule.dr 20 MG PO DAILY (Reported) Sennosides (Senna) 8.6 Mg Tablet 34.4 MG PO BID (Reported) Sertraline HCl (Sertraline) 50 Mg Tablet 75 MG PO DAILY (Reported) As needed Acetaminophen (Acetaminophen) 325 Mg Capsule 650 MG PO q4 hours PRN PRN For Pain (Reported) oxyCODONE (oxyCODONE) 5 Mg Tablet 5-10 MG PO q4 hours PRN PRN For Pain (Reported ) oxyCODONE-Acetaminophen 5-325 mg (oxyCODONE-Acetaminophen 5-325 mg) 1 Each Tablet 1 TAB PO Q4H PRN PRN For Pain Prescribed by: JOSH MONTEMAYOR MD Followup Plan Disposition: halfway facility Discharge Diet: Low fat, Low Sodium, Heart Healthy Discharge Activity: Limited until seen by PCP Patient Instructions You were hospitalized due to right hip fracture. Orthopedics consulted and recommended nonoperative management. Continue pain medications for pain control. Continue physical therapy with nonweightbearing on the right hip. Please follow-up with orthopedics in 2 weeks. He plans to reconsider operative management if pain is uncontrolled. Follow-up Provider: Madison Schmitt MD Follow-up with PCP in: 1 week Provider: Julio Wang DO Follow-up in: 2 weeks Time spent 35 minutes copies to: Madison Schmitt MD; Julio Wang Melaku MD Apr 09, 2017 10:20
--- NOTE | 2017-04-09 11:07 | NUR ---
Social Work- Initial Assessment/Readiness for Discharge Data: See Initial Assessment. Pt is a 76 year old female admitted 04/07/17 for right hip fracture per H&P. PT is going to see pt to educate her regarding transfers and hip precautions. Per Ortho, pt's hip fracture is non operable at this time. Pt will receive outpt Ortho follow up. Pt's insurance is [employer] and [id number]. Pt's PCP is Denny at [facility] [place] [place]. Pt's NOK and DPOA is Chetna King, daughter, . POLST is on hard chart. SW encouraged daughter to bring in copy of DPOA paperwork to have on file as well. Pt's readmit risk score is 4. SW met with pt and pt's daughter at bedside regarding discharge plan, SW role explained. Pt has cognitive impairment at baseline after a stroke. Chetna largely completed this assessment. Pt resides at [facility] as a alf care resident. Pt is wheelchair or bed bound at baseline, requires a everton lift to transfer. Pt does not drive. Pt has no history of HH or SNF prior to [facility] [place] [place]. Pt has no LTC or VA benefits. Pt and daughter agreeable to pt returning to [facility] [place] [place]. SW provided plan and phone number on whiteboard in room. SW has received orders for pt to return to SNF. Access given to [facility] [place] [place]. T/C to Shannon, ajith at [facility], who is agreeable to accepting pt today. SW will facilitate transfer to [facility] [place] [place] after PT has seen pt. Pt to discharge to [facility] [place] [place] with [facility] to follow, transport via wheelchair van. Paperwork in chart. All updated and agreeable to plan. Assessment: Pt for whom return to SNF is medically necessary. Plan: SW will facilitate transfer to [facility] [place] [place] after PT has seen pt. Pt to discharge to [facility] [place] [place] with [facility] to follow, transport via wheelchair van. Paperwork in chart. All updated and agreeable to plan. JAMES Christianson Addendum: 04/09/17 at 1117 by KYE JANG Amended: Links added.
--- NOTE | 2017-04-09 13:56 | NUR ---
Social Work- Discharge Data: EMR reviewed. Pt is a everton lift transfer at baseline, PT spoke with MD regarding suitability of therapy. MD cancelled order. Pt to discharge to [facility] [place], Shannon agreeable to pt's return. UR Specialist created packet and faxed orders. Paperwork in chart. MD has reviewed pt for transportation, feels that wheelchair van is appropriate at this time. Shannon coordinated transport via wheelchair van at 1530. T/C to Chetna, pt's daughter, regarding transport. Pt updated at bedside. RN, NELIDA, pt/family, and [facility] all updated and agreeable to plan. 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 Plan: Pt to return to [facility] with [facility] to follow, transport via wheelchair van at 1530. RN, NELIDA, pt/family, and [facility] all updated and agreeable to plan. JAMES Christianson Addendum: 04/10/17 at 0852 by KYE MILLER Pt fractured hip while residing at [facility], unclear whether it was secondary to fall from wheelchair as pt has baseline confusion. Incident Reported-- Confirmation number [id number] JAMES Christianson
--- NOTE | 2017-04-09 13:56 | DRSVH ---
PROCEDURE: X-RAY ABDOMEN, ONE VIEW ([id number]) INDICATIONS: distension TECHNIQUE: One view of the abdomen acquired. COMPARISON: [facility], CR, XR HIP 2VW RT, 04/07/2017, 17:49. FINDINGS: Surgical changes and devices: None. Bowel: There is mild gaseous distention of the cecum measuring up to 11.2 cm in diameter, otherwise t he bowel gas pattern is normal. No pneumatosis bowel wall thickening. Soft tissues: No suspicious abdominal calcifications. Visualized solid organ contours appear normal in size. Bones: No suspicious bony lesions. Right subcapital femoral neck fracture redemonstrated. IMPRESSION: Mild gaseous distention of the cecum measuring up to 11.2 cm otherwise normal bowel gas pattern. Fin dings are nonspecific and clinical correlation is recommended. If indicated repeat examination could be performed or CT. Impacted right subcapital femoral neck fracture redemonstrated. Dictated by: Jovan Ortega RRA Interpreted: Candice Nunez MD on 04/09/2017 at 11:59 Approved by: Candice Nunez MD, PhD on 04/09/2017 at 13:54
--- NOTE | 2017-04-09 14:13 | NUR ---
PT NOTE-- Transport scheduled for 1529. Patient is W/C bound at baseline with transfers by lift. No acute PT needs at this time.
--- NOTE | 2017-04-09 16:52 | NUR ---
discharged to [facility], transferred with lift to W/C, pt is NWB on RLE, she has been nonambulatory for 2 years per daughter. Report called to SNF. Pt had BM prior to leaving
== END 2017-04-09 14:05 | DRG 536 ==
LOC: SED 16:59 → EDUNIT# 16:59 → EDBD 16:59 → OSC 20:17
PROVIDERS: ADMIT Hospitalist; ATTEND Hospitalist
DX: S72.011A Unspecified intracapsular fracture of right femur, initial encounter for closed fracture (principal); I69.354 Hemiplegia and hemiparesis following cerebral infarction affecting left non-dominant side; F11.20 Opioid dependence, uncomplicated; Z74.01 Bed confinement status; Z79.82 Long term (current) use of aspirin; F32.9 Major depressive disorder, single episode, unspecified; K21.9 Gastro-esophageal reflux disease without esophagitis

== ENCOUNTER 2017-05-23 12:37 | Inpatient (IN) | payer MEDICARE, MEDICAID ==
[2017-05-23] VITALS (7 sets, daily range): BP systolic 115–148; BP diastolic 65–78; PULSE 77–98; RESP 13–21; O2SAT 90–95
[~2017-05-23] VITALS: Ht 175.3 cm; Wt 70.8 kg
[~2017-05-23 12:37] MED LIST changes: -ACET-1890 PO; +ACET325C PO; -AMAN100T PO; -ASPI-628 PO; +ASPI-973 PO; +BACL20TA PO; -CHOL200047 PO; +DEX5 PO; -DEXT1DRO7 BOTH_EYES; -DOCU100T2 PO; -Dexamethasone PO; -FENT1PAT7 TOP; -GABA600T PO; -HYPR15DR3 BOTH_EYES; -INVANZ1I IV; +LACT10SO PO; -LACT1CAP13 PO; -LIDO5CRE5 TP; +LORA10CA PO; -MENT1ADH TP; +MENT56CR TOP; +METH10SO PO; +MINE3.5O28 BOTH_EYES; -MIRT15TA PO; -NITR100 PO; +OLAN2.5T20 PO; +OMEP20CA11 PO; +OXYC1TAB24 PO; -POLY17PO6 PO; -RANI150T13 PO; -SERT25TA2 PO; +SERT50TA9 PO; -TIZA4TAB4 PO; -TIZA6CAP9 PO
--- NOTE | 2017-05-23 12:50 | ED.REPORT ---
HPI-Altered Mental Status Date of Service May 23, 2017 ED Provider: Chetna Tamayo MD 76 y/o female with a hx of inoperable right hip fracture (6 weeks ago), HTN, CVA and neurogenic bladder presents to the ED via EMS from [facility] due to increased confusion today. The pt's daughter states the pt was feeling fine and was eating normally yesterday. Her sx today are very unusual. The pt typically has a difficult time communicating and experiences word salad but today she is not answering any questions. As per the [facility] staff, the pt had also bit her tongue and was bleeding significantly. As per the ED nurse, the pt was given methadone and oxycodone at the [facility]. Code status; Full code Nursing Notes Stated Complaint: DECREASED LOC Chief Complaint: Neuro Symptoms/ Deficits Nursing Notes Reviewed: Yes Allergies: Coded Allergies: Cephalexin Monohydrate (Verified Allergy, Unknown, 04/07/17) Scheduled Aspirin (Aspirin) 81 Mg Tablet 81 MG PO DAILY Baclofen (Baclofen) 20 Mg Tablet 20 MG PO TID Dexamethasone (Dexamethasone) 0.5 Mg Tab 0.5 MG PO DAILY Lactulose (Lactulose) 10 Gm/15 Ml Solution 15 ML PO DAILY Loratadine (Claritin) 10 Mg Capsule 10 MG PO DAILY Menthol/Camphor (Icy Hot Advanced Relief Cream) 16 %-11 % Cream..g. 1 APPLIC TOP BID Methadone (Methadone) 10 Mg/5 Ml Solution 7.5 ML PO DAILY Methadone (Methadone) 10 Mg/5 Ml Solution 9.5 ML PO QPM Mineral Oil/Petrolatum,White (Artificial Tears Eye Oint) 3.5 Gm Tube 1 APPLIC BOTH_EYES HS Olanzapine (Olanzapine) 2.5 Mg Tablet 1.25 MG PO HS Omeprazole (Omeprazole) 20 Mg Capsule.dr 20 MG PO DAILY Sennosides (Senna) 8.6 Mg Tablet 17.2 MG PO BID Sertraline HCl (Sertraline) 50 Mg Tablet 50 MG PO DAILY Scheduled PRN Acetaminophen (Acetaminophen) 325 Mg Capsule 650 MG PO q4 hours PRN PRN For Pain oxyCODONE (oxyCODONE) 5 Mg Tablet 5-10 MG PO q4 hours PRN PRN For Pain oxyCODONE-Acetaminophen 5-325 mg (oxyCODONE-Acetaminophen 5-325 mg) 1 Each Tablet 1 TAB PO Q4H PRN PRN For Pain General Time Seen by MD: 12:41 Chief Complaint Decreased responsiveness Hx Obtained From: [facility] (called the nurse), EMS Sudden in Onset?: No Onset Occurred: 1 - 4 hours ago Symptom Duration: Since onset Recent Healthcare: Recent doctor visit Past Medical History Past Medical History Chronic pain Neurogenic bladder right hip fracture Reports: GERD, Hypertension, Stroke Reports: Depression Smoking History Former Smoker Social History Alcohol Use: Denies alcohol use Drug Use: Denies drug use Other Social History: Lives in halfway Review of Systems Reports: Decreased responsiveness as per visual basic .net developer Reports: tongue bleeding (resolved) Unable to Obtain ROS Mental status Complete sys rev & neg: except as marked. Physical Exam Initial Vital Signs Vital Signs (First) Date Time Temp Pulse Resp B/P Pulse Ox O2 Delivery O2 Flow Rate FiO2 05/23/17 13:03 37.3 77 21 134/65 95 Nasal Cannula 2 Initial VS: Reviewed ENT: Conjunctiva normal Abdomen / GI: Soft, Non-tender Extremities: Vascular intact, No swelling, No tenderness Skin: Warm, Dry, No cyanosis General/Constitutional: Awake, Alert Following commands Head / Eyes: Atraumatic, Normocephalic, PERRL 2mm pupils Neck: Atraumatic, Non-tender Respiratory / Chest: Atraumatic, Breath sounds NL, Breath sounds = bilat, No respiratory distress, No rales, No rhonchi, No wheezing Cardiovascular: Heart rate NL, Regular rhythm, Heart sounds NL, No gallop, No murmurs, No rubs Contracted in left upper extremity, does not move left or right extremity on command. Opens eyes to voice, states name, does not provide any further history or answer any other questions. Mouth: Positive: Mucous membranes dry, Tongue abnormal (small tongue laceration , no bleeding) Interpretation & Diagnostics Lab Results Interpretation Result Diagram: 05/23/17 1314 05/23/17 1314 Test 05/23/17 13:14 05/23/17 13:44 White Blood Count 12.6th/mm3 (3.8-10.1) Red Blood Count 4.74mil/mm3 (3.90-5.20) Hemoglobin 11.3g/dL (12.0-15.6) Hematocrit 37.2% (35.0-46.0) Mean Corpuscular Volume 78.5fL (81-100) Mean Corpuscular Hemoglobin 23.8pg (27.0-35.0) Mean Corpuscular Hemoglobin Concent 30.4% (32.0-37.0) Red Cell Distribution Width 16.6% (12.3-15.4) Platelet Count 270bil/L (150-400) Neutrophils (%) (Auto) 85.2% (40-74) Lymphocytes (%) (Auto) 6.3% (14-46) Monocytes (%) (Auto) 7.2% (4-12) Eosinophils (%) (Auto) 0.8% (0-5) Basophils (%) (Auto) 0.2% (0-3) Sodium Level 143mEq/L (134-144) Potassium Level 4.2mEq/L (3.5-5.2) Chloride Level 104mEq/L (97-108) Carbon Dioxide Level 26mmol/L (18-29) Blood Urea Nitrogen 15mg/dL (8-27) Creatinine 0.73mg/dL (0.57-1.00) Estimat Glomerular Filtration Rate 112mL/min (>59) Glucose Level 102mg/dL (60-99) Calcium Level 9.1mg/dL (8.5-10.1) Total Bilirubin 0.2mg/dL (0.0-1.2) Aspartate Amino Transf (AST/SGOT) 16U/L (0-50) Alanine Aminotransferase (ALT/SGPT) 8U/L (0-32) Alkaline Phosphatase 87U/L (25-165) Total Protein 6.3g/dL (6.4-8.4) Albumin 3.3g/dL (3.4-5.0) Hold Oneal Top Tube Received (Received) Urine Color Yellow (YELLOW) Urine Appearance Slightly cloudy Urine pH 7.5 (5.0-8.0) Urine Specific [place] 1.015 (1.003-1.035) Urine Protein Negativemg/dL (NEG,TRACE) Urine Glucose (UA) Negativemg/dL (NEGATIVE) Urine Ketones Negativemg/dL (NEGATIVE) Urine Occult Blood Moderate (NEGATIVE) Urine Nitrite Positive (NEGATIVE) Urine Bilirubin Negative (NEGATIVE) Urine Urobilinogen Normalmg/dL (NORMAL) Urine Leukocyte Esterase Trace (NEGATIVE) Urine RBC 11-50/hpf (0-2) Urine WBC 0-5/hpf (0-5) Urine Epithelial Cells Few/hpf (NONE-MOD) Urine Crystals Amorphous phosphates Urine Bacteria Many/hpf (NONE-FEW) Urine Hyaline Casts None/lpf (NONE) Urine Granular Casts None seen (NONE SEEN) Urine Waxy Casts None seen (NONE SEEN) Urine Red Blood Cell Casts None seen (NONE SEEN) Urine White Blood Cell Casts None seen (NONE SEEN) Urine Mucus None seen (None Seen) Urine Trichomonas None seen (NONE SEEN) Urine Yeast None (NONE SEEN) Urinalysis Comment None Urine Culture Reflexed Indicated ECG Interpretation ECG Interpretation: Normal sinus rhythm. Rate 80. Consider left ventricular hypertrophy Old inferior infarct. Time: 13:34 Interpreted by: ED physician X-Ray Chest Interpretation Chest Xray Interpretation: IMPRESSION: 1. Bibasilar atelectasis with left lower lobe scarring. No acute cardiopulmonary abnormality. Dictated by: Juan Mc M.D. on 05/23/2017 at 13:39 Approved by: Juan Mc M.D. on 05/23/2017 at 13:41 View: Portable, [address] Head Interpretation IMPRESSION: 1. No acute intracranial hemorrhage. 2. 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 Additional chronic small vessel ischemic changes and parenchymal volume loss are noted. Dictated by: Jorge Vidales M.D. on 05/23/2017 at 12:25 Approved by: Jorge Vidales M.D. on 05/23/2017 at 12:28 Study: Head CT no contrast Interpretation / Wet Read by: Interpret - Radiologist Re-Eval/Medical Decision Med Decision/Clinical Course 76-year-old female since the emergency department with altered mental status, daughter reports that she is markedly different than when seen yesterday. Patient has a UTI, with elevated white blood cell count. She was treated with IV Zosyn, IV fluids, and admitted to the hospital for further management. Re-Evaluation/Progress : Time of Eval: 14:31 Re-Evaluation/Progress Note: Rechecked pt. Discussed Discussed lab results, imaging results, diagnosis and plan to admit. Pt's daughter understands and agrees with the plan for admission. All questions addressed. Consultation : Referral / Consult Name: Jayson Herndon MD Consulted With: Hospitalist Call Returned at: 15:09 [place]: Will see patient, Agrees with eval, Agrees with plan, Accepts admit Counseled Regarding: Diagnosis, Lab results, Need for admission Patient Discharge & Departure Impression: Primary Impression: Complicated UTI (urinary tract infection) Additional Impression: Altered mental status Altered mental status type: unspecified Qualified Code: R41.82 - Altered mental status, unspecified Disposition: ADMITTED TO HOSPITAL Discharge Condition All VS Reviewed: Yes Referrals: Madison Schmitt MD (PCP) Scribe Attestation Portions of this note were transcribed by Aquiles Davis. I,, personally performed the history, physical exam and medical decision-making;I reviewed and confirmed the accuracy of the information in the transcribed note. Signed by Camila Simon. 05/23/17 15:09 copies to: Madison Schmitt MD, Sarah C MD May 23, 2017 12:50 Aquiles Davis May 23, 2017 13:24
[2017-05-23 13:24] LABS: BASOPHILS % (AUTO) 0.2 % (0-3); EOSINOPHILS % (AUTO) 0.8 % (0-5); MONOCYTES % (AUTO) 7.2 % (4-12); Mean Corpuscular Hemoglobin 23.8 pg (27.0-35.0); Mean Corpuscular Volume 78.5 fL (81-100); NEUTROPHILS % (AUTO) 85.2 % (40-74); Platelet Count 270 bil/L (150-400)
--- NOTE | 2017-05-23 13:30 | DRSVH ---
PROCEDURE: CT BRAIN WITHOUT CONTRAST ([id number]) INDICATIONS: altered mental status TECHNIQUE: Noncontrast 4.5 mm thick angled axial sections acquired from the foramen magnum to the vertex, with c oronal reformats. COMPARISON: [facility], MR, BRAIN W&W/O CONTRAST, 10/20/2012, 10:48. FINDINGS: Image quality: Diagnostic. Brain: There is no acute intra-axial or extra-axial hemorrhage. No extra-axial fluid collection is i dentified. There is no midline shift or mass effect. The orbits are grossly unremarkable. A large confluent area of encephalomalacia throughout the right frontal and parietal lobes is identif ied, similar to the prior MRI from 2011. 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 Additional areas of low-attenuation within the periventricular white matter of the l eft supratentorial brain are also present. The ventricles and cortical sulci are moderately prominent. Bones: Calvarium and visualized facial bones are grossly intact. The imaged paranasal sinuses and m astoid air cells are clear. IMPRESSION: 1. No acute intracranial hemorrhage. 2. 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 Additional chroni c small vessel ischemic changes and parenchymal volume loss are noted. Dictated by: Jorge Vidales M.D. on 05/23/2017 at 12:25 Approved by: Jorge Vidales M.D. on 05/23/2017 at 12:28
--- NOTE | 2017-05-23 13:43 | DRSVH ---
PROCEDURE: X-RAY CHEST ONE VIEW, PORTABLE ([id number]) INDICATIONS: altered mental status TECHNIQUE: One view of the chest was acquired. COMPARISON: 04/07/2017 FINDINGS: Patient would not move left hand from over the left lower chest. Surgical changes and devices: None. Lungs and pleura: No pleural effusions or pneumothorax. Curvilinear scarring in the left lower lobe is accentuated by suboptimal inspiration. Similar atelectasis at the right base medially. Mediastinum: Mediastinal contours appear normal. Heart size is normal. Bones and chest wall: No suspicious bony lesions. Overlying soft tissues appear unremarkable. IMPRESSION: 1. Bibasilar atelectasis with left lower lobe scarring. No acute cardiopulmonary abnormality. Dictated by: Juan Mc M.D. on 05/23/2017 at 13:39 Approved by: Juan Mc M.D. on 05/23/2017 at 13:41
[2017-05-23 14:00] LABS: APPEARANCE,URINE SLIGHTLY CLOUDY (CLEAR,HAZY); COLOR,URINE YELLOW (YELLOW); OCCULT BLOOD,URINE MODERATE (NEGATIVE); PH,URINE 7.5 (5.0-8.0)
[2017-05-23 14:01] LABS: UROBILINOGEN,URINE NORMAL (NORMAL)
[2017-05-23] MEDS ORDERED: Piperacillin-Tazo 3.375 Gm Inj 3.375 GM in Dextrose 5% Minibag Plus 50 ML IV ONE (14:40)
[2017-05-23] MEDS ORDERED: 0.9% Sodium Chloride 1,000 ML IV ONE (14:45)
[2017-05-23] MEDS ORDERED: Polyethylene Glycol (PEG) 17 Gm Powder PO PRN (15:45)
[2017-05-23] MEDS ORDERED: Alum-Mag Hydrox-Simeth 30 mL Suspension PO PRN (15:45)
[2017-05-23] MEDS ORDERED: Ondansetron 2 mg/mL 2 mL Inj IVPUSH PRN (15:45)
[2017-05-23] MEDS ORDERED: cefTRIAXone Inj 1,000 MG in Dextrose 5% Minibag Plus 50 ML IV SCH (16:00)
[2017-05-23] MEDS: 0.9% Sodium Chloride 1,000 ML IV SCH (17:24)
--- NOTE | 2017-05-23 17:26 | PCM.HPMED ---
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 Daughter at bedside states she saw her mom yesterday at her baseline which is bedbound , dysarthric but able to have conversation with her. Daughter was called by NH that the patient is lethargic today and sleeping all day . Patient was also noted to have tongue laceration due to bite . No witnessed seizure. No fever reported. Patient urine incontinent at baseline. She was recently hospitalized due to right hip fracture on conservative management ED course: Vitals unremarkable except saturation in low 90s on room air, afebrile, patient lethargic WBC 12.6, urinalysis with 0-5 wbcs, positive nitrite, trace leukocyte esterase CT brain and chest x-ray unchanged Urine culture sent. Ceftriaxone started for UTI Review of Systems: Unable to obtain due to patient's mental status Allergies Coded Allergies: Cephalexin Monohydrate (Verified Allergy, Unknown, 04/07/17) Home Medications Aspirin (Aspirin) 81 Mg Tablet 81 MG PO DAILY Baclofen (Baclofen) 20 Mg Tablet 20 MG PO q8 hours Dexamethasone (Dexamethasone) 0.5 Mg Tab 0.5 MG PO DAILY Lactulose (Lactulose) 10 Gm/15 Ml Solution 15 ML PO DAILY Loratadine (Claritin) 10 Mg Capsule 10 MG PO DAILY Menthol/Camphor (Icy Hot Advanced Relief Cream) 16 %-11 % Cream..g. 1 APPLIC TOP BID Methadone (Methadone) 10 Mg/5 Ml Solution 7.5 ML PO DAILY Methadone (Methadone) 10 Mg/5 Ml Solution 9.5 ML PO QPM Mineral Oil/Petrolatum,White (Artificial Tears Eye Oint) 3.5 Gm Tube 1 APPLIC BOTH_EYES HS Olanzapine (Olanzapine) 2.5 Mg Tablet 2.5 MG PO HS Omeprazole (Omeprazole) 20 Mg Capsule. 20 MG PO DAILY Sennosides (Senna) 8.6 Mg Tablet 34.4 MG PO BID Sertraline HCl (Sertraline) 50 Mg Tablet 75 MG PO DAILY Scheduled PRN Acetaminophen (Acetaminophen) 325 Mg Capsule 650 MG PO q4 hours PRN PRN For Pain oxyCODONE (oxyCODONE) 5 Mg Tablet 5-10 MG PO q4 hours PRN PRN For Pain oxyCODONE-Acetaminophen 5-325 mg (oxyCODONE-Acetaminophen 5-325 mg) 1 Each Tablet 1 TAB PO Q4H PRN PRN For Pain PMH per chart Chronic pain Neurogenic bladder Reports: GERD, Hypertension, Stroke Reports: Depression Surgical History Per outpatient records: Malignant melanoma, removal 1986 Family History per chart:Father: diabetes mellitus Social History Hx Alcohol Use: No Hx Substance Use: No Smoking Status: Former Smoker Exam Vital Signs Vital Sign - Last Date Time Temp Pulse Resp B/P Pulse Ox O2 Delivery O2 Flow Rate FiO2 05/23/17 17:10 36.3 81 16 132/72 92 Room Air 05/23/17 13:03 2 Exam Gen. patient is lying comfortably in hospital bed, lethargic but open eyes when called HEENT: Head is normocephalic atraumatic, Pupils equal and reactive, extraocular movements intact, left angle of tongue with small laceration Lungs clear to auscultation bilaterally Heart regular rate and rhythm without murmurs gallops or rubs Abdomen soft nontender without hepatosplenomegaly Extremities pulses are present dorsalis pedis posterior tibialis and radial. tSkin is warm and dry there are no rashes, Psych lethargic but open eyes when called Neuro cranial nerves II through XII are grossly intact Lymph: There is no lymphadenopathy appreciated in the cervical supra infraclavicular regions : no lugo Lab and Diagnostics Result Diagram: 05/23/17 1314 05/23/17 1314 X-Rays, CTs and MRIs PROCEDURE: CT BRAIN WITHOUT CONTRAST ([id number]) INDICATIONS: altered mental status TECHNIQUE: Noncontrast 4.5 mm thick angled axial sections acquired from the foramen magnum to the vertex, with coronal reformats. COMPARISON: [facility], MR, BRAIN W&W/O CONTRAST, 10/20/2012, 10: 48. FINDINGS: Image quality: Diagnostic. Brain: There is no acute intra-axial or extra-axial hemorrhage. No extra-axial fluid collection is identified. There is no midline shift or mass effect. The orbits are grossly unremarkable. A large confluent area of encephalomalacia throughout the right frontal and parietal lobes is identified, similar to the prior MRI from 2012. 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 Additional areas of low-attenuation within the periventricular white matter of the left supratentorial brain are also present. The ventricles and cortical sulci are moderately prominent. Bones: Calvarium and visualized facial bones are grossly intact. The imaged paranasal sinuses and mastoid air cells are clear. IMPRESSION: 1. No acute intracranial hemorrhage. 2. 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 Additional chronic small vessel ischemic changes and parenchymal volume loss are noted. Dictated by: Jorge Vidales M.D. 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 # Altered mental status due to Complicated UTI - urinalysis with 0-5 wbcs, positive nitrite, trace leukocyte esterase -Urine culture sent -Ceftriaxone started, continue with that -will do EEG given tongue bite -will consider MRI to rule out stroke if no improvement of mentation is the next 12-24hrs . Continue aspirin and statin # Recent right hip fracture -DVT prophylaxis Lovenox -Pain management with morphine, oxycodone, methadone #History of CVA. Chronic. Present on admission. Ongoing - With resultant left sided paralysis and baseline confusion - Continue home baclofen #Depression. Chronic. Present on admission - Continue home sertraline - Continue home olanzapine #History of hypertension. Chronic. Present admission - Hemodynamically stable - Continue to monitor #Prescription narcotic dependence. Chronic. Present on admission. Ongoing - Secondary to chronic pain - Pain medications as above #GERD. Chronic. Present on admission - Continue home omeprazole Patient Status: Patient was admitted under inpatient status with expected length of stay greater than two midnights due to severity of presenting symptoms , risk of adverse event, and complexity of treatment plan. DNR/DNI per DPOA daughter Chetna tel [phone] copies to: Madison Schmitt MD, Melaku MD May 23, 2017 17:26
[2017-05-23] MEDS ORDERED: oxyCODONE-Acetamin 5-325 mg Tablet PO PRN (17:40)
--- NOTE | 2017-05-23 18:03 | NUR ---
Admit [facility] room 3022 from ED Alert and oriented pt arrived to unit at 1645 via stretcher with daughter Tanya at bedside. IV abx Zosyn infusing. Pt moaning in pain from R hip. Pain med orders recd from admitting physician. Admit complete in ED. VSS. Per Tanya, pt has been residing at [facility] for the past 5 yrs d/t a stroke and is bedbound. Pt/family oriented to room and facility. Deny having questions. Upcoming tests for tomorrow discussed and written on whiteboard. Pt on KARMEN P500 bed d/t immobility and hx of pressure ulcer. q2hr turns implemented. Pt connected to continuous pulse ox for close monitoring. Bed in low position, 3 rails up, call light in reach. Will continue to monitor.
[2017-05-23] MEDS ORDERED: Diphen-Lido-Mylanta 1:1:1 Susp 15 mL Syringe PO PRN (18:30)
[2017-05-23] MEDS: Menthol Gel 57 Gm Tube TOPICAL SCH (19:39)
[2017-05-23] MEDS: cefTRIAXone Inj 1,000 MG in Dextrose 5% Minibag Plus 50 ML IV SCH (19:39)
[2017-05-23] MEDS: LacriLube S.O.P. 3.5 Gm Ophthalmic Ointment BOTH_EYES SCH (21:00)
--- NOTE | 2017-05-23 21:06 | NUR ---
[facility] signed at [id number]
[2017-05-23] MEDS: Methadone 10 mg/mL Oral Concentrate PO SCH (21:17)
[2017-05-24 01:17] VITALS: BP 155/81; PULSE 83; RESP 16; O2SAT 96
[2017-05-24 05:41] VITALS: BP 150/90; PULSE 62; RESP 16; O2SAT 98
[2017-05-24 06:17] LABS: BASOPHILS % (AUTO) 0.5 % (0-3); EOSINOPHILS % (AUTO) 1.5 % (0-5); MONOCYTES % (AUTO) 11.5 % (4-12); Mean Corpuscular Hemoglobin 23.5 pg (27.0-35.0); Mean Corpuscular Volume 77.9 fL (81-100); NEUTROPHILS % (AUTO) 69.8 % (40-74); Platelet Count 251 bil/L (150-400)
[2017-05-24 06:32] VITALS: PULSE 82
[2017-05-24 06:42] LABS: Magnesium 1.9 mg/dL (1.6-2.6)
[2017-05-24] MEDS: 0.9% Sodium Chloride 1,000 ML IV SCH (06:52)
[2017-05-24] MEDS: Methadone 10 mg/mL Oral Concentrate PO SCH ×2 (09:28→20:56)
[2017-05-24] MEDS: Lactulose 20 Gm/30 mL 30 mL Syrup PO SCH (09:28)
[2017-05-24] MEDS: Pantoprazole 20 mg ER24 Tablet PO SCH (09:33)
[2017-05-24] MEDS: Menthol Gel 57 Gm Tube TOPICAL SCH ×2 (09:36→20:57)
--- NOTE | 2017-05-24 11:22 | NUR ---
Evaluation completed. Please go to "Notes" then click on "Assessments and Notes" (bottom left corner of screen). Then select appropriate discipline tab on top of screen.
[2017-05-24 12:49] VITALS: BP 107/68; PULSE 84; RESP 16; O2SAT 95
--- NOTE | 2017-05-24 12:55 | PCM.PNMED ---
Subjective Date of Service May 24, 2017 Subjective Mental status markedly improved. Patient interactive today. Mentation back to baseline per daughter at the bedside Exam Vital Signs Vital Sign - Last Date Time Temp Pulse Resp B/P Pulse Ox O2 Delivery O2 Flow Rate FiO2 05/24/17 06:32 82 05/24/17 05:41 36.6 16 150/90 98 Nasal Cannula 1.00 Intake and Output 05/23/17 05/23/17 05/24/17 Cumulative From/Thru 15:00 23:00 07:00 05/23/17 16:44 - 05/23/17 19:08 Intake Total 1055 ml 1055 ml Balance 1055 ml 1055 ml Intake Oral 0 ml 0 ml IV Total 1055 ml 1055 ml # Voids 1 1 # Bowel Movements 0 0 Exam Gen. patient is lying comfortably in hospital bed, alert and interactive but with baseline dysarthria HEENT: Head is normocephalic atraumatic, Pupils equal and reactive, extraocular movements intact, left angle of tongue with small laceration Lungs clear to auscultation bilaterally Heart regular rate and rhythm without murmurs gallops or rubs Abdomen soft nontender without hepatosplenomegaly Extremities pulses are present dorsalis pedis posterior tibialis and radial. tSkin is warm and dry there are no rashes, Psych alert and interactive but with baseline dysarthria Neuro cranial nerves II through XII are grossly intact. Left-sided hemiplegia with contracture Lymph: There is no lymphadenopathy appreciated in the cervical supra infraclavicular regions : no lugo IVs and Medications Medications Reviewed: Medications were reviewed in detail Lab and Diagnostics Result Diagram: 05/24/17 0535 05/24/17 0535 X-Rays, CTs and MRIs PROCEDURE: CT BRAIN WITHOUT CONTRAST ([id number]) INDICATIONS: altered mental status TECHNIQUE: Noncontrast 4.5 mm thick angled axial sections acquired from the foramen magnum to the vertex, with coronal reformats. COMPARISON: [facility], MR, BRAIN W&W/O CONTRAST, 10/20/2012, 10: 48. FINDINGS: Image quality: Diagnostic. Brain: There is no acute intra-axial or extra-axial hemorrhage. No extra-axial fluid collection is identified. There is no midline shift or mass effect. The orbits are grossly unremarkable. A large confluent area of encephalomalacia throughout the right frontal and parietal lobes is identified, similar to the prior MRI from 2012. 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 Additional areas of low-attenuation within the periventricular white matter of the left supratentorial brain are also present. The ventricles and cortical sulci are moderately prominent. Bones: Calvarium and visualized facial bones are grossly intact. The imaged paranasal sinuses and mastoid air cells are clear. IMPRESSION: 1. No acute intracranial hemorrhage. 2. 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 Additional chronic small vessel ischemic changes and parenchymal volume loss are noted. Dictated by: Jorge Vidales M.D. 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 # Altered mental status due to Complicated UTI - urinalysis with 0-5 wbcs, positive nitrite, trace leukocyte esterase -Urine culture growing > 100,000 GNRs -Ceftriaxone started, continue with that -Initially ordered EEG given tongue bite. No EEG available on the weekend. Seizure unlikley and mentation improved with hydration. Cancel order # Tongue bite of unknown significance -magic mouth wash ,pain control # Recent right hip fracture -DVT prophylaxis Lovenox -Pain management with morphine, oxycodone, methadone #History of CVA. Chronic. Present on admission. Ongoing - With resultant left sided paralysis and baseline confusion - Continue home baclofen #Depression. Chronic. Present on admission - Continue home sertraline - Continue home olanzapine #History of hypertension. Chronic. Present admission -Elevated BP.due to IV fluids. Discontinue IV fluids today. - Continue to monitor #Prescription narcotic dependence. Chronic. Present on admission. Ongoing - Secondary to chronic pain - Pain medications as above #GERD. Chronic. Present on admission - Continue home omeprazole Patient Status: Patient was admitted under inpatient status with expected length of stay greater than two midnights due to severity of presenting symptoms , risk of adverse event, and complexity of treatment plan. DNR/DNI per DPOA daughter Chetna tel [phone] Disposition: back to [facility] tomorrow VTE Mechanical Devices: Intermittant Pneumatic CD Jayson Herndon MD May 24, 2017 12:55
[2017-05-24 20:32] VITALS: BP 146/77; PULSE 73; RESP 16; O2SAT 97
[2017-05-24] MEDS: cefTRIAXone Inj 1,000 MG in Dextrose 5% Minibag Plus 50 ML IV SCH (20:45)
[2017-05-24] MEDS ORDERED: 0.9% Sodium Chloride 100 ML ONE (20:50)
[2017-05-24] MEDS: LacriLube S.O.P. 3.5 Gm Ophthalmic Ointment BOTH_EYES SCH (20:57)
[2017-05-25 05:12] VITALS: BP 125/70; PULSE 73; RESP 16; O2SAT 95
[2017-05-25 06:30] LABS: BASOPHILS % (AUTO) 0.7 % (0-3); EOSINOPHILS % (AUTO) 2.9 % (0-5); MONOCYTES % (AUTO) 10.8 % (4-12); Mean Corpuscular Hemoglobin 23.7 pg (27.0-35.0); Mean Corpuscular Volume 78.3 fL (81-100); NEUTROPHILS % (AUTO) 64.6 % (40-74); Platelet Count 267 bil/L (150-400)
--- NOTE | 2017-05-25 06:34 | NUR ---
Cognition/Pain Pt appears more alert today from admit date. Speech less slurred, appropriate responses to questions with sarcasm noted. Pt continued to c/o pain, mostly R hip pain. Cream applied. Scheduled and PRN meds given. Pt finally fell asleep around 0100.
[2017-05-25] MEDS: Lactulose 20 Gm/30 mL 30 mL Syrup PO SCH (08:18)
[2017-05-25] MEDS: Pantoprazole 20 mg ER24 Tablet PO SCH (08:19)
[2017-05-25] MEDS: Methadone 10 mg/mL Oral Concentrate PO SCH (08:19)
[2017-05-25] MEDS: Menthol Gel 57 Gm Tube TOPICAL SCH (08:20)
--- NOTE | 2017-05-25 08:45 | PCM.DIMED ---
Discharge Instructions Date of Service May 25, 2017 Dates of Hospitalization May 23, 2017 at 15:18 Discharge Diagnosis Discharge Diagnosis # Altered mental status due to Complicated UTI # Tongue bite of unknown significance # Recent right hip fracture #History of CVA. Chronic. Present on admission. Ongoing #Depression. Chronic. Present on admission #History of hypertension. Chronic. Present admission #Prescription narcotic dependence. Chronic. Present on admission. Ongoing #GERD. Chronic. Present on admission Diet Discharge Diet: Low fat, Low Sodium Activity Discharge Activity: Limited until seen by PCP Call your provider Call your provider for: Fever or Chills, Shortness of breath, Bleeding, Chest pain, Vomitting, Excessive diarrhea, Weakness (unilateral) Patient Instructions Patient Instructions You were hospitalized due to altered mental status due to completed UTI. Urine culture growing Escherichia coli. Please continue Augmentin for 4 more days. Follow-up Provider: Madison Schmitt MD Follow-up with PCP in: 1 week Jayson Herndon MD May 25, 2017 08:45
[2017-05-25] MEDS ORDERED: AMOX-363 PO (08:46)
--- NOTE | 2017-05-25 09:25 | NUR ---
Social Work: Initial Assessment / Discharge Data: Pt is a 76 y/o female admitted for UTI, AMS. Pt's PCP is Dr Schmitt, pt's insurance is Medicare with [employer] supp. EMR reviewed. D/C orders are in. PERSONNEL AND PAYROLL TECHNICIAN spoke with pt and daughter at bedside, role explained. Pt's daughter states pt has lived at [facility] for almost 5 years as a LTC pt. She uses a wheel chair and everton lift at baseline, does not drive, has hx of HH and SNF, has no LTC or VA benefits. Pt agreeable to return to [facility]. PERSONNEL AND PAYROLL TECHNICIAN spoke with Shannon with [facility], they can accept pt back today, they set up wheel chair van transportation at 11AM. No further d/c planning needs at this time. PERSONNEL AND PAYROLL TECHNICIAN will continue to follow if needs arise. Assessment: Pt from LT SNF. Plan: Pt will return to [facility] via cabulance at 11am today. No further d/c planning needs at this time. PERSONNEL AND PAYROLL TECHNICIAN will continue to follow if needs arise. JAMES Guajardo Addendum: 05/25/17 at 0917 by RENATO JANG Amended: Links added.
--- NOTE | 2017-05-25 11:36 | NUR ---
Discharge Pt discharged to [facility] at 1134. TAken off unit by [facility] transporters. All belongings sent with pt, and transfer packet sent with transporters. Report called to Portia at [facility].
--- NOTE | 2017-05-25 14:09 | PCM.DC.MED ---
Discharge Summary Date of Service May 25, 2017 Dates of Hospitalization Date of Hospital Admission May 23, 2017 at 15:18 Date of Discharge: May 25, 2017 Providers: Admitting Physician: Jayson Montemayor MD Primary Care Physician: Madison Schmitt MD Attending Physician: Jayson Montemayor MD Diagnosis at Time of Discharge Diagnosis at Time of Discharge # Altered mental status due to Complicated UTI # Tongue bite of unknown significance # Recent right hip fracture #History of CVA. Chronic. Present on admission. Ongoing #Depression. Chronic. Present on admission #History of hypertension. Chronic. Present admission #Prescription narcotic dependence. Chronic. Present on admission. Ongoing #GERD. Chronic. Present on admission Procedures XRay, CTs & MRIs PROCEDURE: CT BRAIN WITHOUT CONTRAST ([id number]) INDICATIONS: altered mental status TECHNIQUE: Noncontrast 4.5 mm thick angled axial sections acquired from the foramen magnum to the vertex, with coronal reformats. COMPARISON: [facility], MR, BRAIN W&W/O CONTRAST, 10/20/2012, 10: 48. FINDINGS: Image quality: Diagnostic. Brain: There is no acute intra-axial or extra-axial hemorrhage. No extra-axial fluid collection is identified. There is no midline shift or mass effect. The orbits are grossly unremarkable. A large confluent area of encephalomalacia throughout the right frontal and parietal lobes is identified, similar to the prior MRI from 2011. 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 Additional areas of low-attenuation within the periventricular white matter of the left supratentorial brain are also present. The ventricles and cortical sulci are moderately prominent. Bones: Calvarium and visualized facial bones are grossly intact. The imaged paranasal sinuses and mastoid air cells are clear. IMPRESSION: 1. No acute intracranial hemorrhage. 2. 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 Additional chronic small vessel ischemic changes and parenchymal volume loss are noted. Dictated by: Jorge Vidales M.D. 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 Daughter at bedside states she saw her mom yesterday at her baseline which is bedbound , dysarthric but able to have conversation with her. Daughter was called by MN that the patient is lethargic today and sleeping all day . Patient was also noted to have tongue laceration due to bite . No witnessed seizure. No fever reported. Patient urine incontinent at baseline. She was recently hospitalized due to right hip fracture on conservative management ED course: Vitals unremarkable except saturation in low 90s on room air, afebrile, patient lethargic WBC 12.6, urinalysis with 0-5 wbcs, positive nitrite, trace leukocyte esterase CT brain and chest x-ray unchanged Urine culture sent. 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 # Altered mental status due to Complicated UTI - urinalysis with 0-5 wbcs, positive nitrite, trace leukocyte esterase -Urine culture growing Escherichia coli pansensitive -treated with Ceftriaxone. Discharged on Keflex for 4 more days -Initially ordered EEG given tongue bite. No EEG available on the weekend. Seizure unlikley and mentation improved with hydration. Cancel order # Tongue bite of unknown significance -magic mouth wash ,pain control # Recent right hip fracture -DVT prophylaxis Lovenox -Pain management with morphine, oxycodone, methadone #History of CVA. Chronic. Present on admission. Ongoing - With resultant left sided paralysis and baseline confusion - Continue home baclofen #Depression. Chronic. Present on admission - Continue home sertraline - Continue home olanzapine #History of hypertension. Chronic. Present admission -Elevated BP.due to IV fluids. Discontinue IV fluids - Continue to monitor #Prescription narcotic dependence. Chronic. Present on admission. Ongoing - Secondary to chronic pain - Pain medications as above #GERD. Chronic. Present on admission - Continue home omeprazole Patient Status: Patient was admitted under inpatient status with expected length of stay greater than two midnights due to severity of presenting symptoms , risk of adverse event, and complexity of treatment plan. DNR/DNI per DPOA daughter Chetna tel [phone] Disposition: back to [facility] today Exam Vital Signs (Last) Date Time Temp Pulse Resp B/P Pulse Ox O2 Delivery O2 Flow Rate FiO2 05/25/17 08:37 Supplement Oxygen 05/25/17 05:12 36.5 73 16 125/70 95 1.00 Exam Gen. patient is lying comfortably in hospital bed, alert and interactive but with baseline dysarthria HEENT: Head is normocephalic atraumatic, Pupils equal and reactive, extraocular movements intact, left angle of tongue with small laceration Lungs clear to auscultation bilaterally Heart regular rate and rhythm without murmurs gallops or rubs Abdomen soft nontender without hepatosplenomegaly Extremities pulses are present dorsalis pedis posterior tibialis and radial. Skin is warm and dry there are no rashes, Psych alert and interactive but with baseline dysarthria Neuro cranial nerves II through XII are grossly intact. Left-sided hemiplegia with contracture Lymph: There is no lymphadenopathy appreciated in the cervical supra infraclavicular regions : no lugo Test 05/23/17 13:14 05/23/17 13:44 05/24/17 05:35 05/25/17 06:00 Hold Oneal Top Tube Received (Received) Urine Color Yellow (YELLOW) Urine Appearance Slightly cloudy Urine pH 7.5 (5.0-8.0) Urine Specific [place] 1.015 (1.003-1.035) Urine Protein Negativemg/dL (NEG,TRACE) Urine Glucose (UA) Negativemg/dL (NEGATIVE) Urine Ketones Negativemg/dL (NEGATIVE) Urine Occult Blood Moderate (NEGATIVE) Urine Nitrite Positive (NEGATIVE) Urine Bilirubin Negative (NEGATIVE) Urine Urobilinogen Normalmg/dL (NORMAL) Urine Leukocyte Esterase Trace (NEGATIVE) Urine RBC 11-50/hpf (0-2) Urine WBC 0-5/hpf (0-5) Urine Epithelial Cells Few/hpf (NONE-MOD) Urine Crystals Amorphous phosphates Urine Bacteria Many/hpf (NONE-FEW) Urine Hyaline Casts None/lpf (NONE) Urine Granular Casts None seen (NONE SEEN) Urine Waxy Casts None seen (NONE SEEN) Urine Red Blood Cell Casts None seen (NONE SEEN) Urine White Blood Cell Casts None seen (NONE SEEN) Urine Mucus None seen (None Seen) Urine Trichomonas None seen (NONE SEEN) Urine Yeast None (NONE SEEN) Urinalysis Comment None Urine Culture Reflexed Indicated Magnesium Level 1.9mg/dL (1.6-2.6) Procalcitonin 0.08ng/mL (0.00-0.08) White Blood Count 9.0th/mm3 (3.8-10.1) Red Blood Count 4.69mil/mm3 (3.90-5.20) Hemoglobin 11.1g/dL (12.0-15.6) Hematocrit 36.7% (35.0-46.0) Mean Corpuscular Volume 78.3fL (81-100) Mean Corpuscular Hemoglobin 23.7pg (27.0-35.0) Mean Corpuscular Hemoglobin Concent 30.2% (32.0-37.0) Red Cell Distribution Width 16.7% (12.3-15.4) Platelet Count 267bil/L (150-400) Neutrophils (%) (Auto) 64.6% (40-74) Lymphocytes (%) (Auto) 20.7% (14-46) Monocytes (%) (Auto) 10.8% (4-12) Eosinophils (%) (Auto) 2.9% (0-5) Basophils (%) (Auto) 0.7% (0-3) Sodium Level 143mEq/L (134-144) Potassium Level 3.7mEq/L (3.5-5.2) Chloride Level 106mEq/L (97-108) Carbon Dioxide Level 21mmol/L (18-29) Blood Urea Nitrogen 10mg/dL (8-27) Creatinine 0.73mg/dL (0.57-1.00) Estimat Glomerular Filtration Rate 112mL/min (>59) Glucose Level 82mg/dL (60-99) Calcium Level 9.3mg/dL (8.5-10.1) Total Bilirubin 0.2mg/dL (0.0-1.2) Aspartate Amino Transf (AST/SGOT) 15U/L (0-50) Alanine Aminotransferase (ALT/SGPT) 8U/L (0-32) Alkaline Phosphatase 79U/L (25-165) Total Protein 6.1g/dL (6.4-8.4) Albumin 3.1g/dL (3.4-5.0) Discharge Medications Discharge Medications Amoxicillin/Clav K 500-125 mg (Augmentin 500-125 mg) 1 Each Tablet 1 TABLET PO BID Prescribed by: JAYSON MONTEMAYOR MD Aspirin (Aspirin) 81 Mg Tablet 81 MG PO DAILY (Reported) Baclofen (Baclofen) 20 Mg Tablet 20 MG PO TID (Reported) Dexamethasone (Dexamethasone) 0.5 Mg Tab 0.5 MG PO DAILY (Reported) Lactulose (Lactulose) 10 Gm/15 Ml Solution 15 ML PO DAILY (Reported) Loratadine (Claritin) 10 Mg Capsule 10 MG PO DAILY (Reported) Menthol/Camphor (Icy Hot Advanced Relief Cream) 16 %-11 % Cream..g. 1 APPLIC TOP BID (Reported) Methadone (Methadone) 10 Mg/5 Ml Solution 7.5 ML PO DAILY (Reported) Methadone (Methadone) 10 Mg/5 Ml Solution 9.5 ML PO QPM (Reported) Mineral Oil/Petrolatum,White (Artificial Tears Eye Oint) 3.5 Gm Tube 1 APPLIC BOTH_EYES HS (Reported) Olanzapine (Olanzapine) 2.5 Mg Tablet 1.25 MG PO HS (Reported) Omeprazole (Omeprazole) 20 Mg Capsule.dr 20 MG PO DAILY (Reported) Sennosides (Senna) 8.6 Mg Tablet 17.2 MG PO BID (Reported) Sertraline HCl (Sertraline) 50 Mg Tablet 50 MG PO DAILY (Reported) As needed Acetaminophen (Acetaminophen) 325 Mg Capsule 650 MG PO q4 hours PRN PRN For Pain (Reported) oxyCODONE (oxyCODONE) 5 Mg Tablet 5-10 MG PO q4 hours PRN PRN For Pain (Reported ) oxyCODONE-Acetaminophen 5-325 mg (oxyCODONE-Acetaminophen 5-325 mg) 1 Each Tablet 1 TAB PO Q4H PRN PRN For Pain Prescribed by: JAYSON MONTEMAYOR MD Followup Plan [facility] Discharge Diet: Low fat, Low Sodium Discharge Activity: Limited until seen by PCP Patient Instructions You were hospitalized due to altered mental status due to completed UTI. Urine culture growing Escherichia coli. Please continue Augmentin for 4 more days. Follow-up Provider: Madison Schmitt MD Follow-up with PCP in: 1 week Time spent 35 minutes coordinating discharge copies to: Madison Schmitt MD, Melaku MD May 25, 2017 14:09
== END 2017-05-25 11:34 | DRG 690 ==
LOC: SED 12:37 → EDBD 12:37 → MPC 15:18 → OBSVTOIN 15:18 → MPC 16:44
PROVIDERS: ADMIT Internal Medicine; ATTEND Internal Medicine
DX: N39.0 Urinary tract infection, site not specified (principal); F11.20 Opioid dependence, uncomplicated; Z86.73 Personal history of transient ischemic attack (TIA), and cerebral infarction without residual deficits; Z79.82 Long term (current) use of aspirin; Z87.891 Personal history of nicotine dependence; F32.9 Major depressive disorder, single episode, unspecified; K21.9 Gastro-esophageal reflux disease without esophagitis; Z66 Do not resuscitate; S01.512A Laceration without foreign body of oral cavity, initial encounter; B96.20 Unspecified Escherichia coli [E. coli] as the cause of diseases classified elsewhere